=== PATIENT | female | born 1950 | race Caucasian/White ===

== ENCOUNTER → 2017-03-13 | Outpatient (CLI) | payer MEDICARE ==
--- NOTE | 2017-03-14 15:45 | RAD ---
DATE: 03/13/2017. EXAM: DIGITAL SCREEN BILAT W/CAD. HISTORY: Routine mammographic screening. COMPARISON: 03/12/2016. This study was interpreted with the benefit of Computerized Aided Detection (CAD). FINDINGS: The breast parenchyma is heterogeneously dense, which could reduce sensitivity of mammography. Breast parenchyma level C.. There are no suspicious masses, microcalcifications or architectural distortion. The parenchymal pattern is stable. Scattered and coarse calcifications bilaterally are benign. A small nodule inferiorly on the right is consistent with a benign intraparenchymal lymph node and appears stable. BI-RADS CATEGORY: 2 BENIGN FINDING(S). RECOMMENDED FOLLOW-UP: 12M 12 MONTH FOLLOW-UP. PQRS compliance statement: Patient information was entered into a reminder system with a target due date 03/13/2018 for the next mammogram. Mammography is a sensitive method for finding small breast cancers, but it does not detect them all and is not a substitute for careful clinical examination. A negative mammogram does not negate a clinically suspicious finding and should not result in delay in biopsying a clinically suspicious abnormality. "Our facility is accredited by the [employer] Mammography [employer]."
== END | disposition home or self-care (01) ==
LOC: MAMMO 14:30
PROVIDERS: ATTEND Family Medicine
DX: Z12.31 Encounter for screening mammogram for malignant neoplasm of breast (principal)
CPT/HCPCS: G0202; 77067

== ENCOUNTER → 2018-04-09 | Outpatient (CLI) | payer MEDICARE ==
--- NOTE | 2018-04-10 11:20 | RAD ---
DATE: 04/09/2018 EXAM: MAMMO DOMENIC SCREENING BILATERAL HISTORY: Routine screening COMPARISON: 03/13/2017 This study was interpreted with the benefit of Computerized Aided Detection (CAD). Breast Density: HETERO The breast parenchyma is heterogenously dense, which could reduce sensitivity of mammography. Breast parenchyma level C. FINDINGS: 2-D and 3-D tomosynthesis imaging was performed in CC and MLO projections. The fibroglandular tissues are somewhat nodular in character. No spiculated mass or architectural distortion is seen. There are numerous benign type calcifications. No suspicious microcalcifications have developed. IMPRESSION: Stable mammograms without evidence of malignancy. BI-RADS CATEGORY: 2 BENIGN FINDING(S) RECOMMENDED FOLLOW-UP: 12M 12 MONTH FOLLOW-UP PQRS compliance statement: Patient information was entered into a reminder system with a target due date for the next mammogram. Mammography is a sensitive method for finding small breast cancers, but it does not detect them all and is not a substitute for careful clinical examination. A negative mammogram does not negate a clinically suspicious finding and should not result in delay in biopsying a clinically suspicious abnormality. "Our facility is accredited by the [employer] Mammography [employer]."
== END | disposition home or self-care (01) ==
LOC: MAMMO 12:22
PROVIDERS: ATTEND Family Medicine
DX: Z12.31 Encounter for screening mammogram for malignant neoplasm of breast (principal)
CPT/HCPCS: 77063; 77067

== ENCOUNTER → 2018-12-02 | Outpatient (CLI) | payer MEDICARE ==
[~2018-12-02] MED LIST: REGADENOSON 0.4 MG/5 ML DISP.SYRIN. IV ONE
--- NOTE | 2018-12-02 09:28 | CARD ---
MR#: [id number] Date of Study: 12/02/2018 Ordering Physician: JAMAL LYONS, Referring Physician: JAMAL LYONS Tech: Samara Hill KEEGAN APPROVED REPORT EXAM: Two-dimensional and M-mode echocardiogram with Doppler and color Doppler. Other Information Quality : AverageHR: 72bpm Rhythm : NSRTechnically limited study due to smoking. INDICATION Chest Pain 2D DIMENSIONS RVDd3.0 (2.9-3.5cm)Left Atrium(2D)3.3 (1.6-4.0cm) IVSd0.7 (0.7-1.1cm)Aortic Root(2D)2.6 (2.0-3.7cm) LVDd4.1 (3.9-5.9cm)LVOT Diameter1.9 (1.8-2.4cm) PWd0.8 (0.7-1.1cm)LVDs2.9 (2.5-4.0cm) FS (%) 29.2 %SV41.5 ml LVEF(%)56.5 (>50%) M-Mode DIMENSIONS Left Atrium(MM)3.31 (2.5-4.0cm)Aortic Root2.81 (2.2-3.7cm) Aortic Valve AoV Peak Paul.162.8cm/sAoV VTI28.8cm AO Peak GR.10.6mmHgLVOT Peak Paul.105.0cm/s AO Mean GR.6mmHgAVA (VMAX)1.78cm2 YAZMIN (VTI)1.80cm2 Mitral Valve MV E Kwdmuyyv92.5cm/sMV DECEL WVOT563bz MV A Ohzgqhca153.9cm/sE/A Ratio0.7 Pulmonary Valve PV Peak Qpmvxeds743.7cm/s Tricuspid Valve TR P. Nmkqauum427fp/sRAP WOEOKWHM5waBh TR Peak Gr.55xaXrUIHU05jhAo LEFT VENTRICLE The left ventricle is normal size. There is normal left ventricular wall thickness. Left ventricle sy stolic function is low normal. The Ejection Fraction is 50-55%. Septal motion suggestive of conductio n defect. Transmitral Doppler flow pattern is Grade I-abnormal relaxation pattern. RIGHT VENTRICLE The right ventricle is normal size. There is normal right ventricular wall thickness. The right ventr icular systolic function is normal. ATRIA The left atrium size is normal. The right atrium size is normal. The interatrial septum is intact wit h no evidence for an atrial septal defect or patent foramen ovale as noted on 2-D or Doppler imaging. AORTIC VALVE The aortic valve is trileaflet. The aortic valve is mildly sclerotic. Doppler and Color Flow revealed no significant aortic regurgitation. There is no significant aortic valvular stenosis. MITRAL VALVE Mitral annular calcification is mild. There is no evidence of mitral valve prolapse. There is no mitr al valve stenosis. Doppler and Color Flow revealed no mitral valve regurgitation noted. TRICUSPID VALVE The tricuspid valve is normal in structure and function. Doppler and Color Flow revealed mild tricusp id regurgitation. There is mild-moderate pulmonary hypertension. The PA pressure was estimated at 40 mmHg. There is no tricuspid valve prolapse or vegetation. There is no tricuspid valve stenosis. PULMONIC VALVE The pulmonic valve is not well visualized. GREAT VESSELS The aortic root is normal in size. The ascending aorta is normal in size. The IVC is normal in size a nd collapses >50% with inspiration. PERICARDIAL EFFUSION There is no evidence of significant pericardial effusion. Critical Notification Critical Value: No <Conclusion> Left ventricle systolic function is low normal. The Ejection Fraction is 50-55%. Septal motion suggestive of conduction defect. Doppler and Color Flow revealed mild tricuspid regurgitation. There is mild-moderate pulmonary hypert ension. The PA pressure was estimated at 40 mmHg. Signed by : Ricki Paredes, Electronically Approved : 12/02/2018 09:28:06
--- NOTE | 2018-12-02 13:27 | RAD ---
MR#: [id number] Date of Study: 12/02/2018 Ordering Physician: JAMAL LYONS Referring Physician: RAMSES GAONA Tech: RT Kelby (R) (N) APPROVED REPORT Test Type: Pharmacological Stress Nurse/Tech: Martha Babcock R.N. Test Indications: c/p Cardiac History: htn,smoker Medications: See Electronic Medical Record Medical History: See Electronic Medical Record Resting ECG: SR w/ LBBB Resting Heart Rate: 79 bpm Resting Blood Pressure: 154/71mmHg Pretest Chest Pain: No chest pain Nurse/Tech Notes S1S2, lungs CTA Pharm. Details Pharmacologic stress testing was performed using 0.4mg per 5ml of regadenoson given intravenously ove r 7-10 seconds. Stress Symptoms SOB POST EXERCISE Reason for Termination: Infusion complete Max HR: 95 bpm Max Blood Pressure: 151/72mmHg Blood Pressure response to exercise: Normal blood pressure response during stress. Heart Rate response to exercise: wnl Chest Pain: No. Arrhythmia: No. ST Change: No. INTERPRETATION Stress EKG Conclusion: Baseline EKG showed sinus rhythm with LBBB. Non diagnostic changes at peak st ress. No arrhythmias. Imaging Protocol IMAGE PROTOCOL: Rest Tc-99m/stress Tc-99m 1 day Rest: Stress: Viability: Radiopharm.Tc99m IsnrxdphuEn14b Sestamibi Dose10.5mCi 33mCi Duration 13min. 13min. Img Date 12/02/2018 12/02/2018 Inj-Img Hjka91yxo. 60min. Rest Admin Site:IV - Left AntecubitalAdministrator:RT Mehreen (R)(N) Stress Admin Site: IV - Left AntecubitalAdministrator: AMPARO Mustafa STRESS DATA End Diast. Vol.87.0mlLVEDV index BSA52.0ml End Syst. Vol.23.0mlLVESV index BSA14.0ml Myocardial Kjwr507.0gEject. Crhblvex62.0% Stress Scores Regional WT1.00Summed WT8.00 Regional WM0.00Summed WM0.00 Study quality was good. Left Ventricular size was Normal at Rest and Stress. Lung uptake was . Left Ventricular ejection fraction is 74%. The rest and stress images show normal perfusion, normal contraction and thickening. LV Perf. Quant 17 Seg. SSS4.00 17 Seg. SRS4.00 17 Seg. SDS0.00 Stress Defect Extent (% LAD)16.30Rest Defect Extent (% LAD)15.00Rev. Defect Extent (% LAD)1.30 Stress Defect Extent (% LCX) 0.00Rest Defect Extent (% LCX)0.00Rev. Defect Extent (% LCX)0.00 Stress Defect Extent (% RCA)0.00Rest Defect Extent (% RCA)0.00Rev. Defect Extent (% RCA)0.00 Stress Defect Extent (% DORI)7.20Rest Defect Extent (% DORI)6.70Rev. Defect Extent (% DORI)0.40 Conclusion 1. Regadenoson cardioisotope stress test did not show any evidence of ischemia or infarct. 2. Normal left ventricular systolic function with ejection fraction calculated at 74%. 3. Low risk for cardiac events. Signed by : Jamal Lyons, Electronically Approved : 12/02/2018 13:27:21
== END | disposition home or self-care (01) ==
LOC: ECHO 07:40
PROVIDERS: ATTEND Internal Medicine Cardiovascular Disease
DX: I08.3 Combined rheumatic disorders of mitral, aortic and tricuspid valves (principal); I27.20 Pulmonary hypertension, unspecified; I44.7 Left bundle-branch block, unspecified; I10 Essential (primary) hypertension; Z87.891 Personal history of nicotine dependence
CPT/HCPCS: 78452; 93017; 93306; A9500; J2785

== ENCOUNTER → 2020-01-11 | Outpatient (CLI) | payer MEDICARE, OTHER ==
--- NOTE | 2020-01-11 15:13 | KCIC ---
EXAM: Lumbar spine MRI without contrast. HISTORY: Pain. TECHNIQUE: Multiplanar, multisequence magnetic resonance imaging of the lumbar spine was performed without contrast. COMPARISON: None. FINDINGS: There is lumbar levoscoliosis. There is slight rightward lateral translation of L4 on L5. There is minimal retrolisthesis of L2 on L3 and L3 on L4. There is degenerative endplate remodeling with disc space narrowing, osteophytosis and Schmorl's node formation primarily at L2-S1. There are few osseous hemangiomas. There is no suspicious osseous lesion or fracture. The conus terminates at L1. There are small simple renal cysts. No follow-up is routinely recommended for simple renal cysts. At T10-T11, there is a disc bulge and endplate remodeling. There is mild bilateral facet arthropathy. There is no stenosis. At T11-T12, there is a disc bulge and left lateral predominant endplate remodeling. There is mild left facet arthropathy. There is mild left foraminal stenosis. At T12-L1, there is no stenosis. At L1-L2, there is no stenosis. At L2-L3, there is a disc bulge and endplate osteophytosis. There is mild bilateral facet arthropathy. There is mild bilateral foraminal stenosis. There is mild central canal stenosis. At L3-L4, there is a right lateral predominant disc bulge and endplate osteophytosis. There is moderate right and mild left facet arthropathy. There is mild retrolisthesis. There is moderate right foraminal stenosis. There is mild central canal stenosis. At L4-L5, there is a shallow broad-based right paracentral disc protrusion and annular tear slight superior extrusion superimposed on a disc bulge and endplate osteophytosis. There is severe bilateral facet arthropathy. There is moderate right and moderate to severe left foraminal stenosis. There is mild central canal stenosis. At L5-S1, there is a broad-based posterior disc protrusion and annular tear superimposed on a left lateral predominant disc bulge and endplate osteophytosis. There is moderate left facet arthropathy. There is moderate to severe left foraminal stenosis. IMPRESSION: Multilevel degenerative change involving the lumbar spine, described in detail above. This is associated with mild left foraminal stenosis at T11-T12, mild bilateral foraminal and central canal stenosis at L2-L3, moderate right foraminal and mild central canal stenosis at L3-L4, moderate right and moderate to severe left foraminal and mild central canal stenosis at L4-L5, and moderate to severe left foraminal stenosis at L5-S1. Electronically signed by: Mireille Hyman MD (01/11/2020 3:10 PM) [id number]
== END | disposition home or self-care (01) ==
LOC: KCIC MRI 13:49
PROVIDERS: ATTEND Orthopaedic Surgery
DX: M47.815 Spondylosis without myelopathy or radiculopathy, thoracolumbar region (principal); M48.07 Spinal stenosis, lumbosacral region; M51.47 Schmorl's nodes, lumbosacral region; D18.09 Hemangioma of other sites; N28.1 Cyst of kidney, acquired
CPT/HCPCS: 72148

== ENCOUNTER → 2020-03-27 | Outpatient (CLI) | payer MEDICARE ==
[~2020-03-27] MED LIST changes: +AMLO-187 PO; +CLONAZEPAM1 MG PO; +DICY10CA3 PO; +DULO60CA6 PO; +GREE1CAP PO; +IOHEXOL 180 MG/ML 10 ML VIAL. ONE; +LOXA25CA PO; +MELO15TA23 PO; +METH20TA PO; +MULT-658 PO; +OMEP40CA45 PO; -REGADENOSON 0.4 MG/5 ML DISP.SYRIN. IV ONE; +TRAZ-118 PO; +Vitamin B12; +Vitamin C; +Vitamin D; +methylPREDNISolone ACETATE 40 MG/ML VIAL. ONE; +methylPREDNISolone ACETATE 80 MG/ML VIAL. ONE
--- NOTE | 2020-03-27 12:45 | PDOC1 ---
INITIAL PAIN CONSULT DATE OF SERVICE: DOS: DATE: 03/27/20 TIME: 12:38 CHIEF COMPLAINT: Chief Complaint: Low back and right lower extremity pain HISTORY OF PRESENT ILLNESS: 69-year-old female presents history of pain low back right lower extremity starting around 03 January of this year patient reports it started gradually with not result of any specific injury or accident that she is aware of is worse with standing and walking and at her job she is standing on her feet most of her working day. Patient reports initially treated with some hydrocodone also anti- inflammatories which helped and they still help decrease the pain by about 20 to 30% but the pain is still persistent patient ports much worse with standing and walking for prolonged periods as she does not work with prolonged standing. Patient reports is better with sitting or laying down sleeping is generally not disturbed with the pain does not affect her bowel bladder control but does affect her ability to walk and stand patient has had some chiropractic treatment which she reports was helpful by about 50% as well but not lasting patient rates her disability rating from 0-10 10 being the worst as a five on a scale of 10 family home responsibilities eight with recreation social activity 10 with occupational activity for self-care and life support activities. Patient have a MRI scan of the lumbar spine showing multilevel degenerative change with bilat eral foraminal and central canal stenosis at L2-3 moderate right foraminal and mild central canal stenosis L3-4 moderate right and moderate to severe left foraminal and mild central canal stenosis at L4-5 and moderate to severe left foraminal stenosis at L5-S1. Patient reports no loss of motor function but significant fatigability with standing with the right lower extremity. PAST MEDICAL HISTORY: PMH: Hearing loss, shortness of breath, COPD, hypertension, irritable bowel syndrome, gastropathy reflux, hyperlipidemia, dizziness, arthritis, depression PREVIOUS SURGERIES: Past Surgical Hx: Fibroid tumor excision, abdominal hysterectomy and appendectomy, oral surgery, fractured tailbone CURRENT MEDICATIONS: Current Meds: See chart ALLERGIES; Allergies: Coded Allergies: No Known Drug Allergies (Unverified , 12/02/18) FAMILY HISTORY: Family Hx: Hypertension SOCIAL HISTORY: Social Hx: Patient drinks about two drinks a week alcohol, smokes about a pack a day and has for the past 40 years patient does not use any illegal illicit or recreational drugs is single lives locally in [facility] 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 Extraocular movements are intact and symmetrical. Oral cavity: Mucous membranes moist and pink. Dentition is intact. NECK: Shows anterior throat supple without palpable lymphadenopathy noted. Swallow reflex symmetrical. CHEST: Shows normal on inspection. Breath sounds are clear bilaterally, distant but no rales rhonchi or wheezes auscultated. HEART: Shows S1, S2 clear. No murmurs auscultated. ABDOMEN: Soft, nontender, nondistended, obese. No palpable organomegaly is noted. No rebound or guarding demonstrated. BACK: Shows spine grossly in the midline. Normal-appearing cervical lordotic curvature. There is increased thoracic kyphosis, some minor flattening of the lumbar lordotic curvature. Lumbar paraspinous muscles show symmetrical on inspection, with palpation shows some moderate tenderness diffusely throughout the upper, middle and lower distribution of the paraspinous muscles bilaterally without specific trigger points, without radiation of pain. The patient has good rotational motion of the lumbar spine, both laterally as well as extension and flexion without significant difficulty. No tenderness over the spinous processes, sacrum or sacroiliac regions. EXTREMITIES: Lower extremities show deep tendon reflexes 1+ in the patellar and tendo calcaneus tendons. Motor exam is 4 on a scale of 5 with right dorsiflexion, extension, quadriceps and hamstring flexion and 5/5 on the left. Peripheral pulses are 1+ posterior tibial. No peripheral edema is noted bilaterally. Lower extremities are warm and dry to touch, equal in color and appearance. Straight leg raise noted to be positive on the right about 45 degrees, left side is negative. Gaenslen's and Douglas's maneuvers are negative bilaterally as well. The patient is able to stand, stand on her toes loses balance quickly putting all of her weight on her right lower extremity is walking with a slight favoring gait favoring the right leg but without any assistive device such as canes or walkers. SKIN: Shows warm and dry, good turgor. No edema. No sores, rashes or bruising throughout. IMPRESSION: Impression: 69-year-old female with several month history low back right lower extremity pain in a radicular fashion MRI scan lumbar spine as noted Arthritis Hypertension COPD Plan: Options were discussed with the patient including conservative medical management physical therapies interventional techniques, she like to pursue interventional techniques. We discussed a lumbar epidural steroid injection using description as well as anatomical models to describe the procedure. Risks were discussed including but not limited to: Bleeding, infection, possibility of epidural hematoma and subsequent neurological compromise, dural puncture, headaches, spinal cord and/or nerve damage, side effects of steroid medication, and poor results regarding pain control. Patient understands wished to proceed. Patient will return to clinic in approximate 2 weeks for follow-up, was counseled as to return appointment activity level and side effects to be aware of. Procedure is lumbar epidural steroid injection under local anesthetic using sterile prep and drape at the L4-5 level using C-arm fluoroscopic guidance in both AP and lateral views medications injected is 120 mg Depo-Medrol + 10 mL preservative-free normal saline and 2 mL contrast- condition at discharge is stable patient tolerated procedure well had no complications. BRET TRIMBLE MD Mar 27, 2020 12:45
== END | disposition home or self-care (01) ==
LOC: PNCL 10:19
PROVIDERS: ATTEND Anesthesiology
DX: M54.5 Low back pain (principal); M79.604 Pain in right leg; J44.9 Chronic obstructive pulmonary disease, unspecified; I10 Essential (primary) hypertension; K21.9 Gastro-esophageal reflux disease without esophagitis; E78.00 Pure hypercholesterolemia, unspecified; M19.90 Unspecified osteoarthritis, unspecified site; F32.9 Major depressive disorder, single episode, unspecified; Z90.710 Acquired absence of both cervix and uterus; Z98.890 Other specified postprocedural states; Z82.49 Family history of ischemic heart disease and other diseases of the circulatory system; Z79.899 Other long term (current) drug therapy; Z88.8 Allergy status to other drugs, medicaments and biological substances; Z87.891 Personal history of nicotine dependence
CPT/HCPCS: 62323; J1030; J1040; Q9965

== ENCOUNTER → 2020-04-10 | Outpatient (CLI) | payer MEDICARE ==
--- NOTE | 2020-04-10 10:14 | PDOC ---
Progress Note - Pain Clinic Date of Service: DOS: DATE: 04/10/20 TIME: 10:11 Diagnosis: Dx: Lumbar radiculopathy with lumbar degenerative disc disease and lumbar spinal stenosis History or Present Illness: HPI: 69-year-old female returns follow-up status post lumbar epidural steroid action x1. Patient reports about 50% improvement still pain the low back and into the right lower extremity the leg is doing much better with the back still some significant pain. Patient ports muscle cramping and some burning pain in the leg itself on the right side. Patient ports the pain is aching and tight tingling burning cramping worse in the morning when she is for starting work with some standing and changing positions. Patient ports pain is a 4 to scale 10 at all times worst average and least over the past week and is a 4 today patient reports no new motor or sensory deficits initially she was a much better with distance walking doing work activities household activities much greater ease and comfort traveling with greater ease and comfort as well. Patient ports still wakes her from sleep occasionally not every night but about every 5-6 hours mostly some cramping in the right leg. Patient reports no new motor or sensory deficits no bowel or bladder incontinence or other complaints. Physical Exam: VS: Blood pressure is 124/80 pulse 91 respiration 16 temperature 98.2 F weight is 140 pounds PE: PHYSICAL EXAMINATION: GENERAL: The patient is awake, alert, oriented, appropriate, very pleasant demeanor HEENT: Shows normocephalic, atraumatic. Extraocular movements are intact and symmetrical. Oral cavity: Mucous membranes moist and pink. NECK: Shows anterior throat supple without palpable lymphadenopathy noted. Swallow reflex symmetrical. CHEST: Shows normal on inspection. Breath sounds are clear bilaterally. HEART: Shows S1, S2 clear. No murmurs auscultated. ABDOMEN: Soft, nontender, nondistended, obese. No palpable organomegaly is noted. No rebound or guarding demonstrated. BACK: Shows spine grossly in the midline. Normal-appearing cervical lordotic curvature. There is slightly increased thoracic kyphosis, some minor flattening of the lumbar lordotic curvature. Lumbar paraspinous muscles show symmetrical on inspection, on palpation shows some moderate tenderness diffusely throughout the upper, middle and lower distribution of the paraspinous muscles bilaterally, but without specific trigger points, without radiation of pain. The patient has good rotational motion of the lumbar spine, both laterally as well as extension and flexion without significant difficulty. No tenderness over the spinous processes, sacrum or sacroiliac regions. EXTREMITIES: Lower extremities show deep tendon reflexes 1+ in the patellar and tendo calcaneus tendons. Motor exam is 4 on a scale of 5 with right dorsiflexion, extension, quadriceps and hamstring flexion and 5/5 on the left. Peripheral pulses are 1 posterior tibial. No peripheral edema is noted bilaterally. Lower extremities are warm and dry to touch, equal in color and appearance. SKIN: Shows warm and dry, good turgor. No edema. No sores, rashes or bruising throughout. Procedure: Procedure: Options were discussed with the patient. Patient chart was reviewed as her current medication regimen updated current review of systems updated today as well. We will proceed with a second in this series, lumbar epidural steroid injection today with fluoroscopic guidance. Risks were discussed including but not limited to: Bleeding, infection, possibility of epidural hematoma and subsequent neurological compromise, dural puncture, headaches, spinal cord and/or nerve damage, side effects of steroid medication, and poor results regarding pain control. Patient understands wished to proceed. Patient will return to clinic in approximate 2 weeks for follow-up, was counseled as to return appointment activity level and side effects to be aware of. Medication Injected: Med Injected: Procedure is lumbar epidural steroid injection under local anesthetic using sterile prep and drape at the L4-5 level using C-arm fluoroscopic guidance in both AP and lateral views medications injected is 120 mg Depo-Medrol + 10 mL preservative-free normal saline and 2 mL contrast- condition at discharge is stable patient tolerated procedure well had no complications. Condition at Discharge: Condition at Discharge: Condition at discharge stable, patient tolerated procedure well and had no complications. BRET TRIMBLE MD Apr 10, 2020 10:14
== END | disposition home or self-care (01) ==
LOC: PNCL 09:13
PROVIDERS: ATTEND Anesthesiology
DX: M51.16 Intervertebral disc disorders with radiculopathy, lumbar region (principal); M48.061 Spinal stenosis, lumbar region without neurogenic claudication; Z79.899 Other long term (current) drug therapy; Z88.8 Allergy status to other drugs, medicaments and biological substances
CPT/HCPCS: 62323; J1030; J1040; Q9965

== ENCOUNTER → 2020-04-10 | Outpatient (CLI) | payer MEDICARE, OTHER ==
[~2020-04-10] MED LIST changes: -IOHEXOL 180 MG/ML 10 ML VIAL. ONE; -methylPREDNISolone ACETATE 40 MG/ML VIAL. ONE; -methylPREDNISolone ACETATE 80 MG/ML VIAL. ONE
--- NOTE | 2020-04-10 17:35 | RAD ---
BILATERAL SCREENING MAMMOGRAM, 3-D History: Routine screening. Comparison: 04/09/2018, 03/13/2017, 03/12/2016, 01/13/2014. Technique: MLO and CC digital tomosynthesis (3D) images obtained. Radiologist reviewed these images on dedicated workstation. Findings: Breast Tissue Density C : The breasts are heterogeneously dense, which may obscure small masses. There are no dominant masses, suspicious microcalcifications, or architectural distortion. IMPRESSION: No mammographic evidence of malignancy. Recommend routine screening. BI-RADS category 1: Negative. The images were reviewed with computer-aided detection. Patient information is entered into reminder system with a target due date for the next screening mammogram. Mammography is the most sensitive method for finding small breast cancers, but it does not detect them all and is not a substitute for careful clinical examination. A negative mammogram does not negate a clinically suspicious finding and should not result in delay in biopsying a clinically suspicious abnormality. "Our facility is accredited by the [employer] Mammography Program." Electronically signed by: Smith Buenrostro MD (04/10/2020 5:32 PM) [id number]
== END ==
LOC: MAMMO 08:53
PROVIDERS: ATTEND Family Medicine
DX: Z12.31 Encounter for screening mammogram for malignant neoplasm of breast (principal)
CPT/HCPCS: 77063; 77067

== ENCOUNTER 2020-06-05 13:35 | Inpatient (IN) | payer MEDICARE ==
[~2020-06-05] VITALS: Ht 154.9 cm; Wt 62.9 kg
[~2020-06-05 13:35] MED LIST changes: -OMEP40CA45 PO; +OMEP40CA7 PO
--- NOTE | 2020-06-05 14:54 | EKG ---
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
[2020-06-05 15:09] LABS: BASO # 0.1 x10^3/uL (0.0-0.2); BASO % 1 % (0-3); EOS # 0.1 x10^3/uL (0.0-0.7); EOS % 1 % (0-3); HEMATOCRIT 38.3 % (36.0-47.0); HEMOGLOBIN 13.8 g/dL (12.0-15.5); LYMPH % 14 % (24-48); MEAN CORPUSCULAR HEMOGLOBIN 33 pg (25-35); MEAN CORPUSCULAR HGB CONC 36 g/dL (31-37); MEAN CORPUSCULAR VOLUME 92 fL (79-100); MONO # 0.5 x10^3/uL (0.0-1.1); MONO % 7 % (0-9); NEUT # 5.9 x10^3/uL (1.8-7.7); NEUT % 78 % (31-73); PLATELET COUNT 220 x10^3/uL (140-400); RED BLOOD COUNT 4.15 x10^6/uL (3.50-5.40); RED CELL DISTRIBUTION WIDTH 13.6 % (11.5-14.5); WHITE BLOOD COUNT 7.6 x10^3/uL (4.0-11.0)
[2020-06-05 15:17] LABS: PROTHROMBIN TIME PATIENT 12.4 SEC (11.7-14.0)
[2020-06-05 15:30] LABS: ALBUMIN 3.2 g/dL (3.4-5.0); CALCIUM 8.9 mg/dL (8.5-10.1); CREATININE 6.7 mg/dL (0.6-1.0); DIRECT BILIRUBIN 0.2 mg/dL (0.0-0.2); GFR 6.1; MAGNESIUM 1.8 mg/dL (1.8-2.4); TOTAL BILIRUBIN 0.7 mg/dL (0.2-1.0); TOTAL PROTEIN 6.8 g/dL (6.4-8.2)
--- NOTE | 2020-06-05 15:42 | RAD ---
XR CHEST 1V Clinical Indication: Reason: low potassium Comparison: None. Findings: Atherosclerotic aortic arch. The cardiomediastinal silhouette is normal. Lungs are clear. There is no pneumothorax. No pleural effusion is appreciated. No acute bone abnormality. There is degenerative e ndplate spurring of the thoracic spine. IMPRESSION: No acute cardiopulmonary process. Electronically signed by: Moreno Pappas MD (06/05/2020 3:40 PM) [id number]
[2020-06-05 15:43] LABS: POTASSIUM 2.7 mmol/L (3.5-5.1)
[2020-06-05 16:04] LABS: BILIRUBIN,URINE NEGATIVE (NEG); CLARITY,URINE CLEAR; COLOR,URINE YELLOW; NITRITE,URINE NEGATIVE (NEG); PROTEIN,URINE 30 mg/dL (NEG-TRACE); UROBILINOGEN,URINE 0.2 mg/dL (0.2 mg/dL)
[2020-06-05 16:10] LABS: BARBITURATES NEG (NEG); BENZODIAZEPINES NEG (NEG); CANNABINOIDS NEG (NEG); COCAINE NEG (NEG); METHADONE NEG (NEG); OPIATES NEG (NEG); PHENCYCLIDINE NEG (NEG)
[2020-06-05 16:13] LABS: AMPHETAMINE/METHAMPHETAMINE NEG (NEG)
[2020-06-05 16:19] LABS: AMORPHOUS SEDIMENT,UR PRESENT /HPF; BACTERIA,URINE 0 /HPF (0-FEW); HYALINE CASTS, URINE OCCASIONAL /HPF; RBC,URINE 0 /HPF (0-2); WAXY CASTS,URINE FEW /HPF
[2020-06-05 16:20] LABS: GRANULAR CASTS,URINE FEW /HPF
--- NOTE | 2020-06-05 16:43 | PHYS DOC ---
Past Medical History Past Medical History: Arthritis, COPD, Depression, GERD, Hypertension Past Surgical History: Appendectomy, Hysterectomy, Tonsillectomy, Other Additional Past Surgical Histo: D&C x2 Smoking Status: Current Every Day Smoker Additional Information: 05/06 ppd Alcohol Use: Heavy Additional Information: 2 vodka drinks daily General Adult EDM: Chief Complaint: ABNORMAL LABS HPI: HPI: 70-year-old female past medical history of hypertension, depression, COPD with tobacco dependence, osteoarthritis, chronic low back pain and history of daily alcohol use (2 drinks daily), presents to the ED sent in by primary care physician Dr. Martha Babcock with concern for hyperkalemia and renal failure. Spoke to Dr. Babcock on the phone who told me, patient had labs drawn on 06/02/20, potassium was 2.8, BUN 101, creatinine 10, GFR 3.5. Dr. Babcock reports patient had normal renal function and electrolytes in July 2019. Patient unaware why she was referred to the ER by her primary care physician. Patient states she was seen at [facility] urgent care for constipation and had 2 enemas 1 week ago. States she works 50 hours/week. Reports she drinks plenty of water. No recent V/D or fluid losses. No h/o covid. Pt with no active complaints. Follows with Dr. Dubois for cardiology after an episode of chest pain 2 years ago, with a normal stress test. No h/o acs/known cad or arrthymias. Review of Systems: Review of Systems: Constitutional: Denies fever or chills. [] Eyes: Denies change in visual acuity. [] HENT: Denies nasal congestion or sore throat. [] Respiratory: Denies cough or shortness of breath. [] Cardiovascular: Denies chest pain or edema. [] GI: Denies abdominal pain, nausea, vomiting, bloody stools or diarrhea. [] : Denies dysuria or hematuria Musculoskeletal: Denies back pain or joint pain. [] Integument: Denies rash. [] Neurologic: Denies headache, focal weakness or sensory changes. [] Endocrine: Denies polyuria or polydipsia. [] Lymphatic: Denies swollen glands. [] Psychiatric: Denies depression or anxiety. [] Heart Score: Risk Factors: Risk Factors: DM, Current or recent (<one month) smoker, HTN, HLP, family history of CAD, obesity. Risk Scores: Score 0 - 3: 2.5% MACE over next 6 weeks - Discharge Home Score 4 - 6: 20.3% MACE over next 6 weeks - Admit for Clinical Observation Score 7 - 10: 72.7% MACE over next 6 weeks - Early Invasive Strategies Allergies: Allergies: Allergies Coded Allergies Type Severity Reaction Last Updated Verified nifedipine Allergy Intermediate 06/05/20 Yes YARELIS Inhibitors Adverse Reaction Intermediate cough 06/05/20 Yes Physical Exam: PE: Constitutional: Well developed, well nourished, no acute distress, non-toxic appearance. HENT: Normocephalic, atraumatic, Eyes: EOMI, conjunctiva normal, no discharge. Neck: Normal range of motion, supple, Cardiovascular: S1/2 present, regular rhythm Lungs & Thorax: Speaking in full sentences, bilateral equal chest rise, no tachypnea or increased work of breathing Abdomen: soft, no tenderness, Skin: Warm, dry, no erythema, no rash. [] Back: No tenderness, no CVA tenderness. [] Extremities: No tenderness, no cyanosis, no edema Neurologic: Alert and oriented X 3, normal motor function, normal sensory function, no focal deficits noted. [] Psychologic: Affect normal, judgement normal, mood normal. [] Current Patient Data: Labs: Laboratory Tests Test 06/05/20 14:00 06/05/20 14:55 Urine Collection Type Unknown Urine Color Yellow Urine Clarity Clear Urine pH 5.0 (<5.0-8.0) Urine Specific [place] 1.010 (1.000-1.030) Urine Protein 30 mg/dL (NEG-TRACE) Urine Glucose (UA) Negative mg/dL (NEG) Urine Ketones (Stick) Negative mg/dL (NEG) Urine Blood Negative (NEG) Urine Nitrite Negative (NEG) Urine Bilirubin Negative (NEG) Urine Urobilinogen Dipstick 0.2 mg/dL (0.2 mg/dL) Urine Leukocyte Esterase Negative (NEG) Urine RBC 0 /HPF (0-2) Urine WBC 1-4 /HPF (0-4) Urine Squamous Epithelial Cells Mod /LPF Urine Amorphous Sediment Present /HPF Urine Bacteria 0 /HPF (0-FEW) Urine Cellular Casts Occ /HPF Urine Hyaline Casts Occasional /HPF Urine Granular Casts Few /HPF Urine Waxy Casts Few /HPF Urine Opiates Screen Neg (NEG) Urine Methadone Screen Neg (NEG) Urine Barbiturates Neg (NEG) Urine Phencyclidine Screen Neg (NEG) Urine Amphetamine/Methamphetamine Neg (NEG) Urine Benzodiazepines Screen Neg (NEG) Urine Cocaine Screen Neg (NEG) Urine Cannabinoids Screen Neg (NEG) Urine Ethyl Alcohol Neg (NEG) White Blood Count 7.6 x10^3/uL (4.0-11.0) Red Blood Count 4.15 x10^6/uL (3.50-5.40) Hemoglobin 13.8 g/dL (12.0-15.5) Hematocrit 38.3 % (36.0-47.0) Mean Corpuscular Volume 92 fL (79-100) Mean Corpuscular Hemoglobin 33 pg (25-35) Mean Corpuscular Hemoglobin Concent 36 g/dL (31-37) Red Cell Distribution Width 13.6 % (11.5-14.5) Platelet Count 220 x10^3/uL (140-400) Neutrophils (%) (Auto) 78 % (31-73) H Lymphocytes (%) (Auto) 14 % (24-48) L Monocytes (%) (Auto) 7 % (0-9) Eosinophils (%) (Auto) 1 % (0-3) Basophils (%) (Auto) 1 % (0-3) Neutrophils # (Auto) 5.9 x10^3/uL (1.8-7.7) Lymphocytes # (Auto) 1.0 x10^3/uL (1.0-4.8) Monocytes # (Auto) 0.5 x10^3/uL (0.0-1.1) Eosinophils # (Auto) 0.1 x10^3/uL (0.0-0.7) Basophils # (Auto) 0.1 x10^3/uL (0.0-0.2) Prothrombin Time 12.4 SEC (11.7-14.0) Prothrombin Time INR 1.0 (0.8-1.1) Activated Partial Thromboplast Time 29 SEC (24-38) Sodium Level 141 mmol/L (136-145) Potassium Level 2.7 mmol/L (3.5-5.1) *L Chloride Level 100 mmol/L (98-107) Carbon Dioxide Level 27 mmol/L (21-32) Anion Gap 14 (6-14) Blood Urea Nitrogen 106 mg/dL (7-20) H Creatinine 6.7 mg/dL (0.6-1.0) H Estimated GFR (Cockcroft-Gault) 6.1 Glucose Level 145 mg/dL (70-99) H Calcium Level 8.9 mg/dL (8.5-10.1) Magnesium Level 1.8 mg/dL (1.8-2.4) Total Bilirubin 0.7 mg/dL (0.2-1.0) Direct Bilirubin 0.2 mg/dL (0.0-0.2) Aspartate Amino Transferase (AST) 13 U/L (15-37) L Alanine Aminotransferase (ALT) 25 U/L (14-59) Alkaline Phosphatase 96 U/L (46-116) Creatine Kinase 114 U/L (26-192) Troponin I Quantitative 0.059 ng/mL (0.000-0.055) LW-Ncy-P-Type Natriuretic Peptide 1281 pg/mL (0-124) H Total Protein 6.8 g/dL (6.4-8.2) Albumin 3.2 g/dL (3.4-5.0) L Laboratory Tests 06/05/20 14:55 Laboratory Tests 06/05/20 14:55 Vital Signs: Vital Signs Date Time Temp Pulse Resp B/P (MAP) Pulse Ox O2 Delivery O2 Flow Rate FiO2 06/05/20 14:33 98.5 89 20 135/68 (90) 96 Room Air 98.5 EKG: EKG: Sinus rhythm 88 bpm, left axis deviation, QRS 144, QTC 468, left bundle branch block, T wave inversion 1 and aVL, patient with no active chest pain, does not meet STEMI criteria by modified scarbossas Radiology/Procedures: Radiology/Procedures: []IMAGING REPORT Signed PATIENT: JENNA ORTEGA ACCOUNT: [id number] : 1950 LOCATION: ER AGE: 70 SEX: F EXAM STATUS: REG ER ORD. PHYSICIAN: JAXON ANGELES DO REASON: low k PROCEDURE: PORTABLE CHEST 1V XR CHEST 1V Clinical Indication: Reason: low potassium Comparison: None. Findings: Atherosclerotic aortic arch. The cardiomediastinal silhouette is normal. Lungs are clear. There is no pneumothorax. No pleural effusion is appreciated. No acute bone abnormality. There is degenerative endplate spurring of the thoracic spine. IMPRESSION: No acute cardiopulmonary process. Electronically signed by: Moreno Pappas MD (06/05/2020 3:40 PM) [id number] DICTATED and SIGNED BY: MORENO PAPPAS MD DATE: 06/05/20 [id number] Impression: IMAGING REPORT Signed PATIENT: JENNA ORTEGA AACCOUNT: [id number] : 1950 LOCATION: ER AGE: 70 SEX: F EXAM STATUS: REG ER ORD. PHYSICIAN: JAXON ANGELES DO REASON: low k PROCEDURE: PORTABLE CHEST 1V XR CHEST 1V Clinical Indication: Reason: low potassium Comparison: None. Findings: Atherosclerotic aortic arch. The cardiomediastinal silhouette is normal. Lungs are clear. There is no pneumothorax. No pleural effusion is appreciated. No acute bone abnormality. There is degenerative endplate spurring of the thoracic spine. IMPRESSION: No acute cardiopulmonary process. Electronically signed by: Moreno Pappas MD (06/05/2020 3:40 PM) [id number] DICTATED and SIGNED BY: MORENO PAPPAS MD DATE: 06/05/20 [id number] 0 Course & Med Decision Making: Course & Med Decision Making Pertinent Labs and Imaging studies reviewed. (See chart for details) Concern for renal failure, prerenal acute kidney injury with hypokalemia and elevated troponin/nstemi. Pt with no active cp. I d/w nephro. Will admit for IV fluids and electrolyte replacement and further medical management/cardiology consultation. Patient stable at time of admission and agrees with this plan. I have spoken with the patient and/or caregivers. I have explained the patient's condition, diagnosis and treatment plan based on the information available to me at this time. I have answered the patient's and/or caregivers questions and answered any concerns. The patient and/or caregivers have as good an understanding of the patient's diagnosis, condition and treatment plan as can be expected at this point. The patient has been stabilized within the capability of the emergency department. The patient will be transported for [facility] care and management or will be moved to an observation or inpatient service. I have communicated with the staff or medical practitioner taking over this patient's care. Yomaira Disclaimer: Yomaira Disclaimer: This electronic medical record was generated, in whole or in part, using a voice recognition dictation system. Departure Departure Impression: Primary Impression: Prerenal acute renal failure Additional Impressions: Hypokalemia NSTEMI (non-ST elevated myocardial infarction) Disposition: ADMITTED INPT THIS HOSP Admitting Physician: ANGEL (Dr. Liu) Condition: GUARDED Referrals: GAYLA BABCOCK MD (PCP) JAXON ANGELES DO Jun 05, 2020 16:43
[2020-06-05] MEDS ORDERED: POTASSIUM CL 40MEQ IN 0.9%NACL 1,000 ML IV SCH (17:00)
[2020-06-05] MEDS ORDERED: POTASSIUM BICARB 20 MEQ EFFERVESCENT TABLET. PO ONE (17:00)
[2020-06-05] MEDS ORDERED: IV NORMAL SALINE 1000ML BAG 1,000 ML IV ONE (17:00)
[2020-06-05] MEDS ORDERED: MAGNESIUM SULFATE 2GM 50 ML IV ONE (17:00)
[2020-06-05] MEDS ORDERED: IV NORMAL SALINE 1000ML BAG 1,000 ML IV PRN (18:00)
[2020-06-05] MEDS ORDERED: CALCIUM CARBONATE 500 MG TAB.CHEW PO PRN (18:15)
[2020-06-05] MEDS ORDERED: MAGNESIUM HYDROXIDE 2,400 MG/30 ML ORAL.SUSP. PO PRN (18:15)
[2020-06-05] MEDS ORDERED: ACETAMINOPHEN 325 MG TABLET. PO PRN (18:15)
[2020-06-05] MEDS ORDERED: BISACODYL 10 MG SUPP.RECT. PR PRN (18:15)
[2020-06-05] MEDS ORDERED: ZOLPIDEM 5 MG TABLET. PO PRN (18:15)
[2020-06-05] MEDS ORDERED: MAG HYDROX/ALUMINUM HYD/SIMETH 30 ML ORAL.SUSP PO PRN (18:15)
[2020-06-05] MEDS ORDERED: ONDANSETRON PF 4 MG/2 ML VIAL. IVP PRN (18:15)
[2020-06-05] MEDS ORDERED: MORPHINE SULFATE 2 MG/ML VIAL. IV PRN (18:15)
[2020-06-05 18:20] VITALS: BP 141/72
--- NOTE | 2020-06-05 18:22 | PDOC1 ---
History and Physical Date of Admission Date of Admission DATE: 06/05/20 TIME: 18:07 Identification/Chief Complaint Chief Complaint Hyperkalemia Source Source: Chart review, Patient History of Present Illness History of Present Illness Patient is a 70-year-old female past medical history of hypertension, COPD, who presents to the ER at the behest of her primary care provider for concerns of hypokalemia renal failure. She was seen at [facility] ER 1 week ago due to 5- day history of constipation. She was treated with enema with improvement of her constipation, and followed up with her PCP 3 days ago. Some routine lab work was obtained that showed potassium 2.8, BUN 101, creatinine 10. Repeat lab work in the ER showed potassium 2.7, BUN 106, creatinine 6.7. Patient denies any recent history of vomiting, fever, or diarrhea. Will admit patient for further medical management. Past Medical History Past Medical History COPD, arthritis, depression, GERD, hypertension Past Surgical History Past Surgical History Appendectomy, hysterectomy, tonsillectomy, D&C x2 Family History Family History Denies significant family history Social History Smoke: <1 pack per day ALCOHOL: occassional Drugs: None Current Problem List Problem List Problems Medical Problems: (1) Hypokalemia Status: Acute (2) NSTEMI (non-ST elevated myocardial infarction) Status: Acute (3) Prerenal acute renal failure Status: Acute Current Medications Current Medications Current Medications Sodium Chloride 1,000 ml @ 1,000 mls/hr 1X ONCE IV Last administered on 06/05/20at 16:56; Start 06/05/20 at 17:00; Stop 06/05/20 at 17:59; Status DC Potassium Bicarbonate (Potassium Effervescent Tablet) 40 meq 1X ONCE PO Last administered on 06/05/20at 17:00; Start 06/05/20 at 17:00; Stop 06/05/20 at 17:01; Status DC Magnesium Sulfate 50 ml @ 25 mls/hr 1X ONCE IV Last administered on 06/05/20at 17:09; Start 06/05/20 at 17:00; Stop 06/05/20 at 18:59 Potassium Chloride/Sodium Chloride 1,000 ml @ 100 mls/hr Q10H IV ; Start 06/05/20 at 17:00; Stop 06/06/20 at 02:59 Active Scripts Active Reported Green Tea (Green Tea [place] Extract) 1 Each Capsule 1 Each PO DAILY [Vitamin B12] DAILY [Vitamin C] DAILY [Vitamin D] DAILY Centrum Silver Tablet (Multivits-Min/Fa/Lycopene/Lut) 1 Each Tablet 1 Each PO DAILY Clonazepam 1 Mg Tablet 1 Mg PO DAILY Ritalin (Methylphenidate Hcl) 20 Mg Tablet 1 Tab PO TID Trazodone Hcl 50 Mg Tablet 1 Tab PO QHS Loxapine (Loxapine Succinate) 25 Mg Capsule 25 Mg PO DAILY Cymbalta (Duloxetine Hcl) 60 Mg Capsule.dr 60 Mg PO BID Dicyclomine Hcl 10 Mg Capsule 1 Cap PO DAILY Amlodipine Besylate 10 Mg Tablet 10 Mg PO DAILY Omeprazole 40 Mg Capsule.dr 1 Cap PO DAILY Meloxicam 15 Mg Tablet 1 Tab PO DAILY 30 Days Allergies Allergies: Coded Allergies: nifedipine (Verified Allergy, Intermediate, 06/05/20) YARELIS Inhibitors (Verified Adverse Reaction, Intermediate, cough, 06/05/20) ROS Review of System GENERAL: No history of weight change, weakness or fevers. SKIN: No bruising, hair changes or rashes. EYES: No blurred, double or loss of vision. NOSE AND THROAT: No history of nosebleeds, hoarseness or sore throat. HEART: Denies chest pain, denies palpitations. LUNGS: Denies cough, hemoptysis, wheezing or shortness of breath. GASTROINTESTINAL: Denies nausea, vomiting, abdominal pain. GENITOURINARY: Denies dysuria, frequency, urgency, hematuria. NEUROLOGIC: Denies history of numbness, tingling, tremor or weakness. PSYCHIATRIC: Denies anxiety, denies depression. ENDOCRINE: No history of heat or cold intolerance, polyuria or polydipsia. EXTREMITIES: Denies muscle weakness, joint pain, pain on walking or stiffness. Physical Exam Physical Exam General: Alert, Oriented X3, Cooperative, No acute distress HEENT: PERRLA, EOMI Lungs: Clear to auscultation, Normal air movement Heart: RRR, no murmurs Cardiovascular: S1, S2 Abdomen: Normal bowel sounds, Soft, No tenderness Extremities: No clubbing, No cyanosis Skin: No rashes, No significant lesion Neuro: Normal speech, Normal tone, Sensation intact Psych/Mental Status: Mental status NL, Mood NL Vitals Vitals Vital Signs Date Time Temp Pulse Resp B/P (MAP) Pulse Ox O2 Delivery O2 Flow Rate FiO2 06/05/20 14:33 98.5 89 20 135/68 (90) 96 Room Air 98.5 Labs Labs Laboratory Tests Test 06/05/20 14:00 06/05/20 14:55 Urine Collection Type Unknown Urine Color Yellow Urine Clarity Clear Urine pH 5.0 (<5.0-8.0) Urine Specific [place] 1.010 (1.000-1.030) Urine Protein 30 mg/dL (NEG-TRACE) Urine Glucose (UA) Negative mg/dL (NEG) Urine Ketones (Stick) Negative mg/dL (NEG) Urine Blood Negative (NEG) Urine Nitrite Negative (NEG) Urine Bilirubin Negative (NEG) Urine Urobilinogen Dipstick 0.2 mg/dL (0.2 mg/dL) Urine Leukocyte Esterase Negative (NEG) Urine RBC 0 /HPF (0-2) Urine WBC 1-4 /HPF (0-4) Urine Squamous Epithelial Cells Mod /LPF Urine Amorphous Sediment Present /HPF Urine Bacteria 0 /HPF (0-FEW) Urine Cellular Casts Occ /HPF Urine Hyaline Casts Occasional /HPF Urine Granular Casts Few /HPF Urine Waxy Casts Few /HPF Urine Opiates Screen Neg (NEG) Urine Methadone Screen Neg (NEG) Urine Barbiturates Neg (NEG) Urine Phencyclidine Screen Neg (NEG) Urine Amphetamine/Methamphetamine Neg (NEG) Urine Benzodiazepines Screen Neg (NEG) Urine Cocaine Screen Neg (NEG) Urine Cannabinoids Screen Neg (NEG) Urine Ethyl Alcohol Neg (NEG) White Blood Count 7.6 x10^3/uL (4.0-11.0) Red Blood Count 4.15 x10^6/uL (3.50-5.40) Hemoglobin 13.8 g/dL (12.0-15.5) Hematocrit 38.3 % (36.0-47.0) Mean Corpuscular Volume 92 fL (79-100) Mean Corpuscular Hemoglobin 33 pg (25-35) Mean Corpuscular Hemoglobin Concent 36 g/dL (31-37) Red Cell Distribution Width 13.6 % (11.5-14.5) Platelet Count 220 x10^3/uL (140-400) Neutrophils (%) (Auto) 78 % (31-73) Lymphocytes (%) (Auto) 14 % (24-48) Monocytes (%) (Auto) 7 % (0-9) Eosinophils (%) (Auto) 1 % (0-3) Basophils (%) (Auto) 1 % (0-3) Neutrophils # (Auto) 5.9 x10^3/uL (1.8-7.7) Lymphocytes # (Auto) 1.0 x10^3/uL (1.0-4.8) Monocytes # (Auto) 0.5 x10^3/uL (0.0-1.1) Eosinophils # (Auto) 0.1 x10^3/uL (0.0-0.7) Basophils # (Auto) 0.1 x10^3/uL (0.0-0.2) Prothrombin Time 12.4 SEC (11.7-14.0) Prothromb Time International Ratio 1.0 (0.8-1.1) Activated Partial Thromboplast Time 29 SEC (24-38) Sodium Level 141 mmol/L (136-145) Potassium Level 2.7 mmol/L (3.5-5.1) Chloride Level 100 mmol/L (98-107) Carbon Dioxide Level 27 mmol/L (21-32) Anion Gap 14 (6-14) Blood Urea Nitrogen 106 mg/dL (7-20) Creatinine 6.7 mg/dL (0.6-1.0) Estimated GFR (Cockcroft-Gault) 6.1 Glucose Level 145 mg/dL (70-99) Calcium Level 8.9 mg/dL (8.5-10.1) Magnesium Level 1.8 mg/dL (1.8-2.4) Total Bilirubin 0.7 mg/dL (0.2-1.0) Direct Bilirubin 0.2 mg/dL (0.0-0.2) Aspartate Amino Transf (AST/SGOT) 13 U/L (15-37) Alanine Aminotransferase (ALT/SGPT) 25 U/L (14-59) Alkaline Phosphatase 96 U/L (46-116) Creatine Kinase 114 U/L (26-192) Troponin I Quantitative 0.059 ng/mL (0.000-0.055) EJ-Lfm-A-Type Natriuretic Peptide 1281 pg/mL (0-124) Total Protein 6.8 g/dL (6.4-8.2) Albumin 3.2 g/dL (3.4-5.0) Laboratory Tests Test 06/05/20 14:00 06/05/20 14:55 Urine Collection Type Unknown Urine Color Yellow Urine Clarity Clear Urine pH 5.0 (<5.0-8.0) Urine Specific [place] 1.010 (1.000-1.030) Urine Protein 30 mg/dL (NEG-TRACE) Urine Glucose (UA) Negative mg/dL (NEG) Urine Ketones (Stick) Negative mg/dL (NEG) Urine Blood Negative (NEG) Urine Nitrite Negative (NEG) Urine Bilirubin Negative (NEG) Urine Urobilinogen Dipstick 0.2 mg/dL (0.2 mg/dL) Urine Leukocyte Esterase Negative (NEG) Urine RBC 0 /HPF (0-2) Urine WBC 1-4 /HPF (0-4) Urine Squamous Epithelial Cells Mod /LPF Urine Amorphous Sediment Present /HPF Urine Bacteria 0 /HPF (0-FEW) Urine Cellular Casts Occ /HPF Urine Hyaline Casts Occasional /HPF Urine Granular Casts Few /HPF Urine Waxy Casts Few /HPF Urine Opiates Screen Neg (NEG) Urine Methadone Screen Neg (NEG) Urine Barbiturates Neg (NEG) Urine Phencyclidine Screen Neg (NEG) Urine Amphetamine/Methamphetamine Neg (NEG) Urine Benzodiazepines Screen Neg (NEG) Urine Cocaine Screen Neg (NEG) Urine Cannabinoids Screen Neg (NEG) Urine Ethyl Alcohol Neg (NEG) White Blood Count 7.6 x10^3/uL (4.0-11.0) Red Blood Count 4.15 x10^6/uL (3.50-5.40) Hemoglobin 13.8 g/dL (12.0-15.5) Hematocrit 38.3 % (36.0-47.0) Mean Corpuscular Volume 92 fL (79-100) Mean Corpuscular Hemoglobin 33 pg (25-35) Mean Corpuscular Hemoglobin Concent 36 g/dL (31-37) Red Cell Distribution Width 13.6 % (11.5-14.5) Platelet Count 220 x10^3/uL (140-400) Neutrophils (%) (Auto) 78 % (31-73) Lymphocytes (%) (Auto) 14 % (24-48) Monocytes (%) (Auto) 7 % (0-9) Eosinophils (%) (Auto) 1 % (0-3) Basophils (%) (Auto) 1 % (0-3) Neutrophils # (Auto) 5.9 x10^3/uL (1.8-7.7) Lymphocytes # (Auto) 1.0 x10^3/uL (1.0-4.8) Monocytes # (Auto) 0.5 x10^3/uL (0.0-1.1) Eosinophils # (Auto) 0.1 x10^3/uL (0.0-0.7) Basophils # (Auto) 0.1 x10^3/uL (0.0-0.2) Prothrombin Time 12.4 SEC (11.7-14.0) Prothromb Time International Ratio 1.0 (0.8-1.1) Activated Partial Thromboplast Time 29 SEC (24-38) Sodium Level 141 mmol/L (136-145) Potassium Level 2.7 mmol/L (3.5-5.1) Chloride Level 100 mmol/L (98-107) Carbon Dioxide Level 27 mmol/L (21-32) Anion Gap 14 (6-14) Blood Urea Nitrogen 106 mg/dL (7-20) Creatinine 6.7 mg/dL (0.6-1.0) Estimated GFR (Cockcroft-Gault) 6.1 Glucose Level 145 mg/dL (70-99) Calcium Level 8.9 mg/dL (8.5-10.1) Magnesium Level 1.8 mg/dL (1.8-2.4) Total Bilirubin 0.7 mg/dL (0.2-1.0) Direct Bilirubin 0.2 mg/dL (0.0-0.2) Aspartate Amino Transf (AST/SGOT) 13 U/L (15-37) Alanine Aminotransferase (ALT/SGPT) 25 U/L (14-59) Alkaline Phosphatase 96 U/L (46-116) Creatine Kinase 114 U/L (26-192) Troponin I Quantitative 0.059 ng/mL (0.000-0.055) AS-Aci-O-Type Natriuretic Peptide 1281 pg/mL (0-124) Total Protein 6.8 g/dL (6.4-8.2) Albumin 3.2 g/dL (3.4-5.0) Images Images XR CHEST 1V Clinical Indication: Reason: low potassium Comparison: None. Findings: Atherosclerotic aortic arch. The cardiomediastinal silhouette is normal. Lungs are clear. There is no pneumothorax. No pleural effusion is appreciated. No acute bone abnormality. There is degenerative endplate spurring of the thoracic spine. IMPRESSION: No acute cardiopulmonary process. VTE Prophylaxis Ordered VTE Prophylaxis Devices: No VTE Pharmacological Prophylaxi: Yes Assessment/Plan Assessment/Plan Acute renal failure Hypokalemia Elevated troponin Elevated BNP Plan: Provide continuous IV fluids Consult to nephrology Will obtain urine osmoles, serum osmole, urine potassium Continue to trend troponins; likely elevated in setting of acute renal failure; will consult cardiology if troponins continue to increase Echocardiogram pending Resume home medications FEN - Cardiac diet PPX - Lovenox FULL CODE Dispo - inpatient for above Justifications for Admission Other Justification TOMER MARISCAL MD Jun 05, 2020 18:22
[2020-06-05] MEDS: traZODone 50 MG TABLET. PO SCH (21:26)
[2020-06-05] MEDS: HEPARIN for SUB-Q USE 5,000 UNIT/ML VIAL. SQ SCH (21:29)
[2020-06-05] MEDS ORDERED: HYDR12.58 PO (21:48)
[2020-06-05] MEDS ORDERED: ALBU2.5V8 IH (21:48)
[2020-06-05] MEDS ORDERED: LOSA100T14 PO (21:48)
[2020-06-05] MEDS ORDERED: CRESTOR40 MG PO (21:48)
[2020-06-05] MEDS ORDERED: ALBUTEROL SULFATE 2.5 MG/3 ML NEBU. INH PRN (22:15)
[2020-06-05] MEDS: LOXAPINE SUCCINATE 25 MG CAPSULE PO SCH (22:29)
[2020-06-05] MEDS: ATORVASTATIN CALCIUM 40 MG TABLET. PO SCH (22:34)
[2020-06-05 22:51] VITALS: BP 151/74
[2020-06-06 03:02] VITALS: BP 134/68
--- NOTE | 2020-06-06 06:28 | PDOC ---
[employer] PROGRESS NOTE Date of Service DOS: DATE: 06/06/20 TIME: 06:23 Chief Complaint Chief Complaint Assessment/Plan Acute renal failure Hypokalemia Elevated troponin Elevated BNP Plan: Provide continuous IV fluids Consult to nephrology Will obtain urine osmoles, serum osmole, urine potassium Continue to trend troponins; likely elevated in setting of acute renal failure; will consult cardiology if troponins continue to increase Echocardiogram pending Resume home medications FEN - Cardiac diet PPX - Lovenox FULL CODE Dispo - inpatient for above History of Present Illness History of Present Illness Patient is a 70-year-old female past medical history of hypertension, COPD, who presents to the ER at the behest of her primary care provider for concerns of hypokalemia renal failure. She was seen at [facility] ER 1 week ago due to 5- day history of constipation. She was treated with enema with improvement of her constipation, and followed up with her PCP 3 days ago. Some routine lab work was obtained that showed potassium 2.8, BUN 101, creatinine 10. Repeat lab work in the ER showed potassium 2.7, BUN 106, creatinine 6.7. Patient denies any recent history of vomiting, fever, or diarrhea. Will admit patient for further medical management. 06/06: Patient seen and evaluated. She has no complaints. Creatinine 6.7 yesterday, creatinine 4.9 today. Continue IV fluids, avoid nephrotoxins. Will follow cardiology and nephrology recommendations. Vitals/I&O Vitals/I&O: Vital Signs Date Time Temp Pulse Resp B/P (MAP) Pulse Ox O2 Delivery O2 Flow Rate FiO2 06/06/20 03:02 97.6 80 18 134/68 (90) 98 Room Air 97.6 I & O 06/05/20 06/05/20 06/06/20 15:00 23:00 07:00 Intake Total 100 ml 500 ml Output Total 600 ml 800 ml Balance -500 ml -300 ml Physical Exam General: Alert, Oriented X3, Cooperative Heart: Regular rate Lungs: Clear Abdomen: Normal bowel sounds, No tenderness Extremities: No clubbing, No cyanosis Skin: No rashes, No breakdown Labs Labs: Laboratory Tests Test 06/05/20 14:00 06/05/20 14:55 06/05/20 20:30 Urine Collection Type Unknown Urine Color Yellow Urine Clarity Clear Urine pH 5.0 (<5.0-8.0) Urine Specific [place] 1.010 (1.000-1.030) Urine Protein 30 mg/dL (NEG-TRACE) Urine Glucose (UA) Negative mg/dL (NEG) Urine Ketones (Stick) Negative mg/dL (NEG) Urine Blood Negative (NEG) Urine Nitrite Negative (NEG) Urine Bilirubin Negative (NEG) Urine Urobilinogen Dipstick 0.2 mg/dL (0.2 mg/dL) Urine Leukocyte Esterase Negative (NEG) Urine RBC 0 /HPF (0-2) Urine WBC 1-4 /HPF (0-4) Urine Squamous Epithelial Cells Mod /LPF Urine Amorphous Sediment Present /HPF Urine Bacteria 0 /HPF (0-FEW) Urine Cellular Casts Occ /HPF Urine Hyaline Casts Occasional /HPF Urine Granular Casts Few /HPF Urine Waxy Casts Few /HPF Urine Opiates Screen Neg (NEG) Urine Methadone Screen Neg (NEG) Urine Barbiturates Neg (NEG) Urine Phencyclidine Screen Neg (NEG) Urine Amphetamine/Methamphetamine Neg (NEG) Urine Benzodiazepines Screen Neg (NEG) Urine Cocaine Screen Neg (NEG) Urine Cannabinoids Screen Neg (NEG) Urine Ethyl Alcohol Neg (NEG) White Blood Count 7.6 x10^3/uL (4.0-11.0) Red Blood Count 4.15 x10^6/uL (3.50-5.40) Hemoglobin 13.8 g/dL (12.0-15.5) Hematocrit 38.3 % (36.0-47.0) Mean Corpuscular Volume 92 fL (79-100) Mean Corpuscular Hemoglobin 33 pg (25-35) Mean Corpuscular Hemoglobin Concent 36 g/dL (31-37) Red Cell Distribution Width 13.6 % (11.5-14.5) Platelet Count 220 x10^3/uL (140-400) Neutrophils (%) (Auto) 78 % (31-73) Lymphocytes (%) (Auto) 14 % (24-48) Monocytes (%) (Auto) 7 % (0-9) Eosinophils (%) (Auto) 1 % (0-3) Basophils (%) (Auto) 1 % (0-3) Neutrophils # (Auto) 5.9 x10^3/uL (1.8-7.7) Lymphocytes # (Auto) 1.0 x10^3/uL (1.0-4.8) Monocytes # (Auto) 0.5 x10^3/uL (0.0-1.1) Eosinophils # (Auto) 0.1 x10^3/uL (0.0-0.7) Basophils # (Auto) 0.1 x10^3/uL (0.0-0.2) Prothrombin Time 12.4 SEC (11.7-14.0) Prothromb Time International Ratio 1.0 (0.8-1.1) Activated Partial Thromboplast Time 29 SEC (24-38) Sodium Level 141 mmol/L (136-145) Potassium Level 2.7 mmol/L (3.5-5.1) Chloride Level 100 mmol/L (98-107) Carbon Dioxide Level 27 mmol/L (21-32) Anion Gap 14 (6-14) Blood Urea Nitrogen 106 mg/dL (7-20) Creatinine 6.7 mg/dL (0.6-1.0) Estimated GFR (Cockcroft-Gault) 6.1 Glucose Level 145 mg/dL (70-99) Calcium Level 8.9 mg/dL (8.5-10.1) Magnesium Level 1.8 mg/dL (1.8-2.4) Total Bilirubin 0.7 mg/dL (0.2-1.0) Direct Bilirubin 0.2 mg/dL (0.0-0.2) Aspartate Amino Transf (AST/SGOT) 13 U/L (15-37) Alanine Aminotransferase (ALT/SGPT) 25 U/L (14-59) Alkaline Phosphatase 96 U/L (46-116) Creatine Kinase 114 U/L (26-192) Troponin I Quantitative 0.059 ng/mL (0.000-0.055) 0.067 ng/mL (0.000-0.055) AG-Jaz-[id number]-Type Natriuretic Peptide 1281 pg/mL (0-124) Total Protein 6.8 g/dL (6.4-8.2) Albumin 3.2 g/dL (3.4-5.0) Assessment and Plan Assessmemt and Plan Problems Medical Problems: (1) Hypokalemia Status: Acute (2) NSTEMI (non-ST elevated myocardial infarction) Status: Acute (3) Prerenal acute renal failure Status: Acute Comment Review of Relevant I have reviewed the following items kiana (where applicable) has been applied. Medications: Current Medications Medications (Trade) Dose Ordered Sig/Esme Route PRN Reason Start Time Stop Time Status Last Admin Dose Admin Sodium Chloride 1,000 ml @ 1,000 mls/hr 1X ONCE IV 06/05/20 17:00 06/05/20 17:59 DC 06/05/20 16:56 Potassium Bicarbonate (Potassium Effervescent Tablet) 40 meq 1X ONCE PO 06/05/20 17:00 06/05/20 17:01 DC 06/05/20 17:00 Magnesium Sulfate 50 ml @ 25 mls/hr 1X ONCE IV 06/05/20 17:00 06/05/20 18:59 DC 06/05/20 17:09 Potassium Chloride/Sodium Chloride 1,000 ml @ 100 mls/hr Q10H IV 06/05/20 17:00 06/06/20 02:59 DC 06/05/20 18:13 Trazodone HCl (Desyrel) 50 mg QHS PO 06/05/20 21:00 06/05/20 21:26 Heparin Sodium (Porcine) (Heparin Sodium) 5,000 unit Q12HR SQ 06/05/20 21:00 06/05/20 21:29 Amlodipine Besylate (Norvasc) 10 mg HS PO 06/05/20 23:00 06/05/20 22:34 Atorvastatin Calcium (Lipitor) 80 mg QHS PO 06/05/20 23:00 06/05/20 22:34 Loxapine Succinate (Loxitane) 25 mg HS PO 06/05/20 23:00 06/05/20 22:29 Justifications for Admission Other Justification Acute renal failure, hypokalemia TOMER MARISCAL MD Jun 06, 2020 06:28
[2020-06-06 07:00] VITALS: BP 134/67
[2020-06-06 08:45] LABS: BASO # 0.1 x10^3/uL (0.0-0.2); BASO % 1 % (0-3); EOS # 0.2 x10^3/uL (0.0-0.7); EOS % 3 % (0-3); HEMATOCRIT 38.9 % (36.0-47.0); HEMOGLOBIN 13.3 g/dL (12.0-15.5); LYMPH # 1.7 x10^3/uL (1.0-4.8); LYMPH % 28 % (24-48); MEAN CORPUSCULAR HEMOGLOBIN 33 pg (25-35); MEAN CORPUSCULAR HGB CONC 34 g/dL (31-37); MEAN CORPUSCULAR VOLUME 95 fL (79-100); MONO # 0.6 x10^3/uL (0.0-1.1); MONO % 10 % (0-9); NEUT # 3.4 x10^3/uL (1.8-7.7); NEUT % 57 % (31-73); PLATELET COUNT 204 x10^3/uL (140-400); RED BLOOD COUNT 4.08 x10^6/uL (3.50-5.40); RED CELL DISTRIBUTION WIDTH 13.6 % (11.5-14.5)
[2020-06-06] MEDS: DICYCLOMINE HCL 10 MG CAPSULE PO SCH (08:57)
[2020-06-06] MEDS: DULoxetine HCL 30 MG CAPSULE.DR PO SCH (08:57)
[2020-06-06] MEDS: PANTOPRAZOLE 40 MG TABLET.DR. PO SCH (08:57)
[2020-06-06] MEDS ORDERED: hydroCHLOROthiazide 12.5 MG CAPSULE PO SCH (09:00)
[2020-06-06] MEDS ORDERED: LOSARTAN POTASSIUM 50 MG TABLET. PO SCH (09:00)
[2020-06-06] MEDS ORDERED: clonazePAM 0.5 MG TABLET PO SCH (09:00)
[2020-06-06] MEDS: HEPARIN for SUB-Q USE 5,000 UNIT/ML VIAL. SQ SCH ×2 (09:02→22:17)
[2020-06-06 09:03] LABS: CALCIUM 9.2 mg/dL (8.5-10.1); CREATININE 4.9 mg/dL (0.6-1.0); GFR 8.8; POTASSIUM 3.2 mmol/L (3.5-5.1)
[2020-06-06] MEDS ORDERED: POTASSIUM CHLORIDE 20 MEQ TABLET.ER. PO ONE (09:30)
[2020-06-06] MEDS: IV NORMAL SALINE 1000ML BAG 1,000 ML IV SCH ×2 (09:37→19:26)
[2020-06-06 09:54] LABS: CHOLESTEROL/HDL RATIO 1.9
[2020-06-06] MEDS ORDERED: METH20TA PO (10:16)
--- NOTE | 2020-06-06 10:22 | PDOC2 ---
CONSULT Date of Consult Date of Consult DATE: 06/06/20 TIME: 10:22 Reason for Consult Reason for Consult: KENYA Source Source: Chart review, Patient History of Present Illness Reason for Visit: Patient is a 70 yo female with past medical history of hypertension, COPD, who presents to the ER from her PCP's office for concerns of hypokalemia renal failure. She was seen at [facility] ER 1 week ago due to 5-day history of constipation. She was treated with enema with improvement of her constipation, and followed up with her PCP 3 days ago. Some routine lab work was obtained that showed potassium 2.8, BUN 101, creatinine 10. Repeat lab work in the ER showed potassium 2.7, BUN 106, creatinine 6.7. Patient denies any recent history of vomiting, fever, or diarrhea. She denies any F/C. No Cough, SOB or CP. She reports she was inctinnet for some time which resolved , approx since past 3 months she notice urine was frothy and maybe some decline in UOP. Denies any dysuria, hematuria, No symptoms of UTI . She reports she stays adequately hydrated and drinks at least 64 oz of water /day. No palpitations, dizziness and no recent falls, injury. No recent imaging that required IV contrast. Denies any Hx of Kidney stones She has been on meloxicam for many tears for her back pain which is mid to lower back also radiating to flank area, its constant, chronic . Denies use of any OTC meds or health supplements except Vit D and green tree extract . Not on Diuretics, No recent med changes or Abx by PCP She is on ritalin for daytime somnolence Past Medical History Past Medical History COPD, arthritis, depression, GERD, hypertension Carpal Tunnel Syndrome, Other (narcolepsy?) Past Surgical History Past Surgical History Appendectomy, hysterectomy, tonsillectomy, D&C x2 Family History Family History Denies significant family history Social History Social History Smoke: <1 pack per day ALCOHOL: occassional Drugs: None <1 pack per day ALCOHOL: occassional Drugs: None Current Problem List Problem List Problems Medical Problems: (1) Hypokalemia Status: Acute (2) NSTEMI (non-ST elevated myocardial infarction) Status: Acute (3) Prerenal acute renal failure Status: Acute Current Medications Current Medications Current Medications Sodium Chloride 1,000 ml @ 1,000 mls/hr 1X ONCE IV Last administered on 06/05/20at 16:56; Start 06/05/20 at 17:00; Stop 06/05/20 at 17:59; Status DC Potassium Bicarbonate (Potassium Effervescent Tablet) 40 meq 1X ONCE PO Last administered on 06/05/20at 17:00; Start 06/05/20 at 17:00; Stop 06/05/20 at 17:01; Status DC Magnesium Sulfate 50 ml @ 25 mls/hr 1X ONCE IV Last administered on 06/05/20at 17:09; Start 06/05/20 at 17:00; Stop 06/05/20 at 18:59; Status DC Potassium Chloride/Sodium Chloride 1,000 ml @ 100 mls/hr Q10H IV Last administ ered on 06/05/20at 18:13; Start 06/05/20 at 17:00; Stop 06/06/20 at 02:59; Status DC Sodium Chloride 1,000 ml @ 100 mls/hr CONT PRN IV .; Start 06/05/20 at 18:00 Dicyclomine HCl (Bentyl) 10 mg DAILY PO Last administered on 06/06/20at 08:57; Start 06/06/20 at 09:00 Trazodone HCl (Desyrel) 50 mg QHS PO Last administered on 06/05/20at 21:26; Start 06/05/20 at 21:00 Clonazepam (KlonoPIN) 1 mg DAILY PO Last administered on 06/06/20at 08:57; Start 06/06/20 at 09:00 Ondansetron HCl (Zofran) 4 mg PRN Q6HRS PRN IVP NAUSEA/VOMITING; Start 06/05/20 at 18:15 Al Hydroxide/Mg Hydroxide (Mylanta Plus Xs) 30 ml PRN Q3HRS PRN PO HEARTBURN / GAS; Start 06/05/20 at 18:15; Status Cancel Calcium Carbonate/ Glycine (Tums) 500 mg PRN Q3HRS PRN PO UPSET STOMACH; Start 06/05/20 at 18:15 Zolpidem Tartrate (Ambien) 5 mg PRN QHS PRN PO INSOMNIA, MAY REPEAT IN 1HR; Start 06/05/20 at 18:15 Morphine Sulfate (Morphine Sulfate) 2 mg PRN Q1HR PRN IV PAIN; Start 06/05/20 at 18:15 Acetaminophen (Tylenol) 650 mg PRN Q6HRS PRN PO Headaches, Temp > 101.5F; Start 06/05/20 at 18:15 Magnesium Hydroxide (Milk Of Magnesia) 2,400 mg PRN Q12HR PRN PO CONSTIPATION; Start 06/05/20 at 18:15; Status Cancel Bisacodyl (Dulcolax Supp) 10 mg PRN DAILY PRN OR CONSTIPATION; Start 06/05/20 at 18:15 Heparin Sodium (Porcine) (Heparin Sodium) 5,000 unit Q12HR SQ Last administered on 06/06/20at 09:02; Start 06/05/20 at 21:00 Amlodipine Besylate (Norvasc) 10 mg HS PO Last administered on 06/05/20at 22:34; Start 06/05/20 at 23:00 Duloxetine HCl (Cymbalta) 60 mg DAILY PO Last administered on 06/06/20at 08:57; Start 06/06/20 at 09:00 Hydrochlorothiazide (Microzide) 12.5 mg DAILY PO Last administered on 06/06/20at 08:56; Start 06/06/20 at 09:00; Stop 06/06/20 at 09:54; Status DC Losartan Potassium (Cozaar) 100 mg DAILY PO Last administered on 06/06/20at 08:56; Start 06/06/20 at 09:00; Stop 06/06/20 at 09:54; Status DC Pantoprazole Sodium (Protonix) 40 mg DAILYAC PO Last administered on 06/06/20at 08:57; Start 06/06/20 at 07:30 Atorvastatin Calcium (Lipitor) 80 mg QHS PO Last administered on 06/05/20at 22:34; Start 06/05/20 at 23:00 Loxapine Succinate (Loxitane) 25 mg HS PO Last administered on 06/05/20at 22:29; Start 06/05/20 at 23:00 Albuterol Sulfate (Ventolin Neb Soln) 2.5 mg PRN Q4HRS PRN INH wheezing; Start 06/05/20 at 22:15 Potassium Chloride (Klor-Con) 40 meq 1X ONCE PO Last administered on 06/06/20at 09:37; Start 06/06/20 at 09:30; Stop 06/06/20 at 09:31; Status DC Sodium Chloride 1,000 ml @ 100 mls/hr Q10H IV Last administered on 06/06/20at 09:37; Start 06/06/20 at 09:30 Active Scripts Active Reported Ritalin (Methylphenidate Hcl) 20 Mg Tablet 1 Tab PO TID Crestor (Rosuvastatin Calcium) 40 Mg Tablet 1 Tab PO DAILY Proair Hfa Inhaler (Albuterol Sulfate) 8.5 Gm Hfa.aer.ad 2 Puff IH PRN Q4-6HRS PRN 21 Days Green Tea (Green Tea Susan Moore Extract) 1 Each Capsule 1 Each PO DAILY [Vitamin B12] DAILY [Vitamin C] DAILY [Vitamin D] DAILY Centrum Silver Tablet (Multivits-Min/Fa/Lycopene/Lut) 1 Each Tablet 1 Each PO DAILY Clonazepam 1 Mg Tablet 1 Mg PO TID PRN Trazodone Hcl 50 Mg Tablet 1 Tab PO QHS Loxapine (Loxapine Succinate) 25 Mg Capsule 25 Mg PO HS Cymbalta (Duloxetine Hcl) 60 Mg Capsule.dr 60 Mg PO DAILY Dicyclomine Hcl 10 Mg Capsule 1 Cap PO HS Amlodipine Besylate 10 Mg Tablet 10 Mg PO HS Omeprazole 40 Mg Capsule.dr 1 Cap PO DAILY Allergies Allergies: Coded Allergies: nifedipine (Verified Allergy, Intermediate, 06/05/20) YARELIS Inhibitors (Verified Adverse Reaction, Intermediate, cough, 06/05/20) ROS Review of System As per HPI, rest of the ROS is negative Physical Exam Physical Exam General: No acute distress HEENT: Atraumatic, Mucous membr. moist/pink Neck supple Lungs: Clear to auscultation, non labored Heart: Regular rate (SR),No rub Abdomen: Soft, No tenderness Extremities: No cyanosis, No edema Skin: No rash No significant lesion Neuro: AXO x3, grossly normal, No Asterexis Psych/Mental Status: Mental status NL, Mood NL No Live, No CVA or SP tenderness MS- Chronic Back pain, Lumbar stenosis, No other joint swellings or Gout etc Vital Signs Vital Signs Date Time Temp Pulse Resp B/P (MAP) Pulse Ox O2 Delivery O2 Flow Rate FiO2 06/06/20 08:56 85 134/67 06/06/20 08:34 96 Nasal Cannula 2.0 06/06/20 07:00 97.5 20 97.5 Assessment & Plan KENYA - ATN/ Chronic use of NSAID's , Non Oliguric , Improving renal function with IVF Check Pr/Cr , Renal US pending ,Continue IV hydration , supportive care,strict I/O, Bladder scan prn , Avoid Nephrotoxins, No NSAID's Hypokalemia- Replacing Mild acute on chronic diastolic CHF: compensated ?Narcolepsy: she is on ritalin Chronic LBBB COPD -still smokes HTN: controlled,per her gome list (reconciled in our system) she is only on Amlodipine Labs Labs Laboratory Tests Test 06/05/20 14:00 06/05/20 14:55 06/05/20 20:30 06/06/20 07:40 Urine Collection Type Unknown Urine Color Yellow Urine Clarity Clear Urine pH 5.0 (<5.0-8.0) Urine Specific [place] 1.010 (1.000-1.030) Urine Protein 30 mg/dL (NEG-TRACE) Urine Glucose (UA) Negative mg/dL (NEG) Urine Ketones (Stick) Negative mg/dL (NEG) Urine Blood Negative (NEG) Urine Nitrite Negative (NEG) Urine Bilirubin Negative (NEG) Urine Urobilinogen Dipstick 0.2 mg/dL (0.2 mg/dL) Urine Leukocyte Esterase Negative (NEG) Urine RBC 0 /HPF (0-2) Urine WBC 1-4 /HPF (0-4) Urine Squamous Epithelial Cells Mod /LPF Urine Amorphous Sediment Present /HPF Urine Bacteria 0 /HPF (0-FEW) Urine Cellular Casts Occ /HPF Urine Hyaline Casts Occasional /HPF Urine Granular Casts Few /HPF Urine Waxy Casts Few /HPF Urine Opiates Screen Neg (NEG) Urine Methadone Screen Neg (NEG) Urine Barbiturates Neg (NEG) Urine Phencyclidine Screen Neg (NEG) Urine Amphetamine/Methamphetamine Neg (NEG) Urine Benzodiazepines Screen Neg (NEG) Urine Cocaine Screen Neg (NEG) Urine Cannabinoids Screen Neg (NEG) Urine Ethyl Alcohol Neg (NEG) White Blood Count 7.6 x10^3/uL (4.0-11.0) 6.0 x10^3/uL (4.0-11.0) Red Blood Count 4.15 x10^6/uL (3.50-5.40) 4.08 x10^6/uL (3.50-5.40) Hemoglobin 13.8 g/dL (12.0-15.5) 13.3 g/dL (12.0-15.5) Hematocrit 38.3 % (36.0-47.0) 38.9 % (36.0-47.0) Mean Corpuscular Volume 92 fL (79-100) 95 fL (79-100) Mean Corpuscular Hemoglobin 33 pg (25-35) 33 pg (25-35) Mean Corpuscular Hemoglobin Concent 36 g/dL (31-37) 34 g/dL (31-37) Red Cell Distribution Width 13.6 % (11.5-14.5) 13.6 % (11.5-14.5) Platelet Count 220 x10^3/uL (140-400) 204 x10^3/uL (140-400) Neutrophils (%) (Auto) 78 % (31-73) 57 % (31-73) Lymphocytes (%) (Auto) 14 % (24-48) 28 % (24-48) Monocytes (%) (Auto) 7 % (0-9) 10 % (0-9) Eosinophils (%) (Auto) 1 % (0-3) 3 % (0-3) Basophils (%) (Auto) 1 % (0-3) 1 % (0-3) Neutrophils # (Auto) 5.9 x10^3/uL (1.8-7.7) 3.4 x10^3/uL (1.8-7.7) Lymphocytes # (Auto) 1.0 x10^3/uL (1.0-4.8) 1.7 x10^3/uL (1.0-4.8) Monocytes # (Auto) 0.5 x10^3/uL (0.0-1.1) 0.6 x10^3/uL (0.0-1.1) Eosinophils # (Auto) 0.1 x10^3/uL (0.0-0.7) 0.2 x10^3/uL (0.0-0.7) Basophils # (Auto) 0.1 x10^3/uL (0.0-0.2) 0.1 x10^3/uL (0.0-0.2) Prothrombin Time 12.4 SEC (11.7-14.0) Prothromb Time International Ratio 1.0 (0.8-1.1) Activated Partial Thromboplast Time 29 SEC (24-38) Sodium Level 141 mmol/L (136-145) 147 mmol/L (136-145) Potassium Level 2.7 mmol/L (3.5-5.1) 3.2 mmol/L (3.5-5.1) Chloride Level 100 mmol/L (98-107) 106 mmol/L (98-107) Carbon Dioxide Level 27 mmol/L (21-32) 29 mmol/L (21-32) Anion Gap 14 (6-14) 12 (6-14) Blood Urea Nitrogen 106 mg/dL (7-20) 87 mg/dL (7-20) Creatinine 6.7 mg/dL (0.6-1.0) 4.9 mg/dL (0.6-1.0) Estimated GFR (Cockcroft-Gault) 6.1 8.8 Glucose Level 145 mg/dL (70-99) 105 mg/dL (70-99) Calcium Level 8.9 mg/dL (8.5-10.1) 9.2 mg/dL (8.5-10.1) Magnesium Level 1.8 mg/dL (1.8-2.4) 2.1 mg/dL (1.8-2.4) Total Bilirubin 0.7 mg/dL (0.2-1.0) Direct Bilirubin 0.2 mg/dL (0.0-0.2) Aspartate Amino Transf (AST/SGOT) 13 U/L (15-37) Alanine Aminotransferase (ALT/SGPT) 25 U/L (14-59) Alkaline Phosphatase 96 U/L (46-116) Creatine Kinase 114 U/L (26-192) Troponin I Quantitative 0.059 ng/mL (0.000-0.055) 0.067 ng/mL (0.000-0.055) HN-Huh-Q-Type Natriuretic Peptide 1281 pg/mL (0-124) Total Protein 6.8 g/dL (6.4-8.2) Albumin 3.2 g/dL (3.4-5.0) Triglycerides Level 117 mg/dL (0-150) Cholesterol Level 187 mg/dL (0-200) LDL Cholesterol, Calculated 64 mg/dL (0-100) VLDL Cholesterol, Calculated 23 mg/dL (0-40) Non-HDL Cholesterol Calculated 87 mg/dL (0-129) HDL Cholesterol 100 mg/dL (40-60) Cholesterol/HDL Ratio 1.9 Laboratory Tests Test 06/05/20 14:00 06/05/20 14:55 06/05/20 20:30 06/06/20 07:40 Urine Collection Type Unknown Urine Color Yellow Urine Clarity Clear Urine pH 5.0 (<5.0-8.0) Urine Specific [place] 1.010 (1.000-1.030) Urine Protein 30 mg/dL (NEG-TRACE) Urine Glucose (UA) Negative mg/dL (NEG) Urine Ketones (Stick) Negative mg/dL (NEG) Urine Blood Negative (NEG) Urine Nitrite Negative (NEG) Urine Bilirubin Negative (NEG) Urine Urobilinogen Dipstick 0.2 mg/dL (0.2 mg/dL) Urine Leukocyte Esterase Negative (NEG) Urine RBC 0 /HPF (0-2) Urine WBC 1-4 /HPF (0-4) Urine Squamous Epithelial Cells Mod /LPF Urine Amorphous Sediment Present /HPF Urine Bacteria 0 /HPF (0-FEW) Urine Cellular Casts Occ /HPF Urine Hyaline Casts Occasional /HPF Urine Granular Casts Few /HPF Urine Waxy Casts Few /HPF Urine Opiates Screen Neg (NEG) Urine Methadone Screen Neg (NEG) Urine Barbiturates Neg (NEG) Urine Phencyclidine Screen Neg (NEG) Urine Amphetamine/Methamphetamine Neg (NEG) Urine Benzodiazepines Screen Neg (NEG) Urine Cocaine Screen Neg (NEG) Urine Cannabinoids Screen Neg (NEG) Urine Ethyl Alcohol Neg (NEG) White Blood Count 7.6 x10^3/uL (4.0-11.0) 6.0 x10^3/uL (4.0-11.0) Red Blood Count 4.15 x10^6/uL (3.50-5.40) 4.08 x10^6/uL (3.50-5.40) Hemoglobin 13.8 g/dL (12.0-15.5) 13.3 g/dL (12.0-15.5) Hematocrit 38.3 % (36.0-47.0) 38.9 % (36.0-47.0) Mean Corpuscular Volume 92 fL (79-100) 95 fL (79-100) Mean Corpuscular Hemoglobin 33 pg (25-35) 33 pg (25-35) Mean Corpuscular Hemoglobin Concent 36 g/dL (31-37) 34 g/dL (31-37) Red Cell Distribution Width 13.6 % (11.5-14.5) 13.6 % (11.5-14.5) Platelet Count 220 x10^3/uL (140-400) 204 x10^3/uL (140-400) Neutrophils (%) (Auto) 78 % (31-73) 57 % (31-73) Lymphocytes (%) (Auto) 14 % (24-48) 28 % (24-48) Monocytes (%) (Auto) 7 % (0-9) 10 % (0-9) Eosinophils (%) (Auto) 1 % (0-3) 3 % (0-3) Basophils (%) (Auto) 1 % (0-3) 1 % (0-3) Neutrophils # (Auto) 5.9 x10^3/uL (1.8-7.7) 3.4 x10^3/uL (1.8-7.7) Lymphocytes # (Auto) 1.0 x10^3/uL (1.0-4.8) 1.7 x10^3/uL (1.0-4.8) Monocytes # (Auto) 0.5 x10^3/uL (0.0-1.1) 0.6 x10^3/uL (0.0-1.1) Eosinophils # (Auto) 0.1 x10^3/uL (0.0-0.7) 0.2 x10^3/uL (0.0-0.7) Basophils # (Auto) 0.1 x10^3/uL (0.0-0.2) 0.1 x10^3/uL (0.0-0.2) Prothrombin Time 12.4 SEC (11.7-14.0) Prothromb Time International Ratio 1.0 (0.8-1.1) Activated Partial Thromboplast Time 29 SEC (24-38) Sodium Level 141 mmol/L (136-145) 147 mmol/L (136-145) Potassium Level 2.7 mmol/L (3.5-5.1) 3.2 mmol/L (3.5-5.1) Chloride Level 100 mmol/L (98-107) 106 mmol/L (98-107) Carbon Dioxide Level 27 mmol/L (21-32) 29 mmol/L (21-32) Anion Gap 14 (6-14) 12 (6-14) Blood Urea Nitrogen 106 mg/dL (7-20) 87 mg/dL (7-20) Creatinine 6.7 mg/dL (0.6-1.0) 4.9 mg/dL (0.6-1.0) Estimated GFR (Cockcroft-Gault) 6.1 8.8 Glucose Level 145 mg/dL (70-99) 105 mg/dL (70-99) Calcium Level 8.9 mg/dL (8.5-10.1) 9.2 mg/dL (8.5-10.1) Magnesium Level 1.8 mg/dL (1.8-2.4) 2.1 mg/dL (1.8-2.4) Total Bilirubin 0.7 mg/dL (0.2-1.0) Direct Bilirubin 0.2 mg/dL (0.0-0.2) Aspartate Amino Transf (AST/SGOT) 13 U/L (15-37) Alanine Aminotransferase (ALT/SGPT) 25 U/L (14-59) Alkaline Phosphatase 96 U/L (46-116) Creatine Kinase 114 U/L (26-192) Troponin I Quantitative 0.059 ng/mL (0.000-0.055) 0.067 ng/mL (0.000-0.055) HS-Wbu-B-Type Natriuretic Peptide 1281 pg/mL (0-124) Total Protein 6.8 g/dL (6.4-8.2) Albumin 3.2 g/dL (3.4-5.0) Triglycerides Level 117 mg/dL (0-150) Cholesterol Level 187 mg/dL (0-200) LDL Cholesterol, Calculated 64 mg/dL (0-100) VLDL Cholesterol, Calculated 23 mg/dL (0-40) Non-HDL Cholesterol Calculated 87 mg/dL (0-129) HDL Cholesterol 100 mg/dL (40-60) Cholesterol/HDL Ratio 1.9 Review All relevant outside records, renal labs, imaging studies, telemetry/EKG's were reviewed. PHYLLIS BHATT MD Jun 06, 2020 10:22
--- NOTE | 2020-06-06 10:31 | PDOC2 ---
DEMETRI SANTOS COMPLAINT SUPERVISOR 06/06/20 1031: CARDIAC CONSULT DATE OF CONSULT Date of Consult DATE: 06/06/20 TIME: 10:02 REASON FOR CONSULT Reason for Consult: NSTEMI REFERRING PHYSICIAN Referring Physician: [facility] SOURCE Source: Chart review, Patient HISTORY OF PRESENT ILLNESS HISTORY OF PRESENT ILLNESS This is a pleasant 70 yo female admitted for complains of abnormal renal labs. She went to her PCP's office and noted her renal labs were significnatly abnormal and in renal failure. Reports that in the last month her urine has been frothy and decreased. Denies any vomiting in the last month and no diarrhea and actually constipated and used miralax the other day but no diarrhea. Occasionally her fluid intake is diminished but has been compensating drinking about 64 oz a day fo total fluids. Denies any chest pain, SOA but has been having PND and actually had some leg swelling last Friday which is no absent. No palpitations, dizziness and no recent falls, injury or MVA. No recent imaging that required IV contrast. Reports that she takes mobic, losartan and HCTZ. No other OTC and no recreational drugs. She does take PRN aleve. Denies any kidney disease. Her last sleep study was 10 yrs ago. Last night she was noted with 88% on RA while asleep hence O2 was placed. Also there is no recent antibiotic use. she does feeling daytime somnolence which she explains why she is on ritalin. No hx of VTE, covid-19 s/s or exposure, CVA. No recent fever or chills. No coughing spells. Verbalized controlled BP at home. PAST MEDICAL HISTORY Cardiovascular: HTN, Hyperlipidemia Pulmonary: COPD CENTRAL NERVOUS SYSTEM: Carpal Tunnel Syndrome, Other (narcolepsy?) GI: Constipation Heme/Onc: No pertinent hx Hepatobiliary: No pertinent hx Psych: Anxiety Musculoskeletal: Osteoarthritis Rheumatologic: No pertinent hx Infectious disease: No pertinent hx ENT: No pertinent hx Renal/: No pertinent hx Endocrine: No pertinent hx Dermatology: No pertinent hx PAST SURGICAL HISTORY Past Surgical History: Tonsillectomy, Hysterectomy, Colon Resection FAMILY HISTORY Family History noncontributory to CV SOCIAL HISTORY Smoke: <1 pack per day ALCOHOL: other (vodka "2 drinks") Drugs: None Lives: with Family CURRENT MEDICATIONS CURRENT MEDICATIONS Current Medications Medications (Trade) Dose Ordered Sig/Esme Route PRN Reason Start Time Stop Time Status Last Admin Dose Admin Sodium Chloride 1,000 ml @ 1,000 mls/hr 1X ONCE IV 06/05/20 17:00 06/05/20 17:59 DC 06/05/20 16:56 Potassium Bicarbonate (Potassium Effervescent Tablet) 40 meq 1X ONCE PO 06/05/20 17:00 06/05/20 17:01 DC 06/05/20 17:00 Magnesium Sulfate 50 ml @ 25 mls/hr 1X ONCE IV 06/05/20 17:00 06/05/20 18:59 DC 06/05/20 17:09 Potassium Chloride/Sodium Chloride 1,000 ml @ 100 mls/hr Q10H IV 06/05/20 17:00 06/06/20 02:59 DC 06/05/20 18:13 Dicyclomine HCl (Bentyl) 10 mg DAILY PO 06/06/20 09:00 06/06/20 08:57 Trazodone HCl (Desyrel) 50 mg QHS PO 06/05/20 21:00 06/05/20 21:26 Clonazepam (KlonoPIN) 1 mg DAILY PO 06/06/20 09:00 06/06/20 08:57 Heparin Sodium (Porcine) (Heparin Sodium) 5,000 unit Q12HR SQ 06/05/20 21:00 06/06/20 09:02 Amlodipine Besylate (Norvasc) 10 mg HS PO 06/05/20 23:00 06/05/20 22:34 Duloxetine HCl (Cymbalta) 60 mg DAILY PO 06/06/20 09:00 06/06/20 08:57 Hydrochlorothiazide (Microzide) 12.5 mg DAILY PO 06/06/20 09:00 06/06/20 09:54 DC 06/06/20 08:56 Losartan Potassium (Cozaar) 100 mg DAILY PO 06/06/20 09:00 06/06/20 09:54 DC 06/06/20 08:56 Pantoprazole Sodium (Protonix) 40 mg DAILYAC PO 06/06/20 07:30 06/06/20 08:57 Atorvastatin Calcium (Lipitor) 80 mg QHS PO 06/05/20 23:00 06/05/20 22:34 Loxapine Succinate (Loxitane) 25 mg HS PO 06/05/20 23:00 06/05/20 22:29 Potassium Chloride (Klor-Con) 40 meq 1X ONCE PO 06/06/20 09:30 06/06/20 09:31 DC 06/06/20 09:37 Sodium Chloride 1,000 ml @ 100 mls/hr Q10H IV 06/06/20 09:30 06/06/20 09:37 ALLERGIES ALLERGIES: Coded Allergies: nifedipine (Verified Allergy, Intermediate, 06/05/20) YARELIS Inhibitors (Verified Adverse Reaction, Intermediate, cough, 06/05/20) ROS Review of System 14 point ROS evaluated with pertinent positives noted per HPI PHYSICAL EXAM General: Alert, Oriented X3, Cooperative, No acute distress HEENT: Atraumatic, Mucous membr. moist/pink Lungs: Clear to auscultation, Normal air movement Heart: Regular rate (SR), Normal S1, Normal S2, Other (3/6 systolic murmur to LLS border) Abdomen: Soft, No tenderness Extremities: No cyanosis, No edema Skin: No breakdown, No significant lesion Neuro: Normal speech, Sensation intact Psych/Mental Status: Mental status NL, Mood NL MUSCULOSKELETAL: Osteoarthritic changes both hands VITALS/I&O VITALS/I&O: Vital Signs Date Time Temp Pulse Resp B/P (MAP) Pulse Ox O2 Delivery O2 Flow Rate FiO2 06/06/20 08:56 85 134/67 06/06/20 08:34 96 Nasal Cannula 2.0 06/06/20 07:00 97.5 20 97.5 I & O 06/05/20 06/05/20 06/06/20 15:00 23:00 07:00 Intake Total 100 ml 500 ml Output Total 600 ml 800 ml Balance -500 ml -300 ml LABS Lab: Laboratory Tests Test 06/05/20 14:00 06/05/20 14:55 06/05/20 20:30 06/06/20 07:40 Urine Collection Type Unknown Urine Color Yellow Urine Clarity Clear Urine pH 5.0 (<5.0-8.0) Urine Specific Max 1.010 (1.000-1.030) Urine Protein 30 mg/dL (NEG-TRACE) Urine Glucose (UA) Negative mg/dL (NEG) Urine Ketones (Stick) Negative mg/dL (NEG) Urine Blood Negative (NEG) Urine Nitrite Negative (NEG) Urine Bilirubin Negative (NEG) Urine Urobilinogen Dipstick 0.2 mg/dL (0.2 mg/dL) Urine Leukocyte Esterase Negative (NEG) Urine RBC 0 /HPF (0-2) Urine WBC 1-4 /HPF (0-4) Urine Squamous Epithelial Cells Mod /LPF Urine Amorphous Sediment Present /HPF Urine Bacteria 0 /HPF (0-FEW) Urine Cellular Casts Occ /HPF Urine Hyaline Casts Occasional /HPF Urine Granular Casts Few /HPF Urine Waxy Casts Few /HPF Urine Opiates Screen Neg (NEG) Urine Methadone Screen Neg (NEG) Urine Barbiturates Neg (NEG) Urine Phencyclidine Screen Neg (NEG) Urine Amphetamine/Methamphetamine Neg (NEG) Urine Benzodiazepines Screen Neg (NEG) Urine Cocaine Screen Neg (NEG) Urine Cannabinoids Screen Neg (NEG) Urine Ethyl Alcohol Neg (NEG) White Blood Count 7.6 x10^3/uL (4.0-11.0) 6.0 x10^3/uL (4.0-11.0) Red Blood Count 4.15 x10^6/uL (3.50-5.40) 4.08 x10^6/uL (3.50-5.40) Hemoglobin 13.8 g/dL (12.0-15.5) 13.3 g/dL (12.0-15.5) Hematocrit 38.3 % (36.0-47.0) 38.9 % (36.0-47.0) Mean Corpuscular Volume 92 fL (79-100) 95 fL (79-100) Mean Corpuscular Hemoglobin 33 pg (25-35) 33 pg (25-35) Mean Corpuscular Hemoglobin Concent 36 g/dL (31-37) 34 g/dL (31-37) Red Cell Distribution Width 13.6 % (11.5-14.5) 13.6 % (11.5-14.5) Platelet Count 220 x10^3/uL (140-400) 204 x10^3/uL (140-400) Neutrophils (%) (Auto) 78 % (31-73) H 57 % (31-73) Lymphocytes (%) (Auto) 14 % (24-48) L 28 % (24-48) Monocytes (%) (Auto) 7 % (0-9) 10 % (0-9) H Eosinophils (%) (Auto) 1 % (0-3) 3 % (0-3) Basophils (%) (Auto) 1 % (0-3) 1 % (0-3) Neutrophils # (Auto) 5.9 x10^3/uL (1.8-7.7) 3.4 x10^3/uL (1.8-7.7) Lymphocytes # (Auto) 1.0 x10^3/uL (1.0-4.8) 1.7 x10^3/uL (1.0-4.8) Monocytes # (Auto) 0.5 x10^3/uL (0.0-1.1) 0.6 x10^3/uL (0.0-1.1) Eosinophils # (Auto) 0.1 x10^3/uL (0.0-0.7) 0.2 x10^3/uL (0.0-0.7) Basophils # (Auto) 0.1 x10^3/uL (0.0-0.2) 0.1 x10^3/uL (0.0-0.2) Prothrombin Time 12.4 SEC (11.7-14.0) Prothrombin Time INR 1.0 (0.8-1.1) Activated Partial Thromboplast Time 29 SEC (24-38) Sodium Level 141 mmol/L (136-145) 147 mmol/L (136-145) H Potassium Level 2.7 mmol/L (3.5-5.1) *L 3.2 mmol/L (3.5-5.1) L Chloride Level 100 mmol/L (98-107) 106 mmol/L (98-107) Carbon Dioxide Level 27 mmol/L (21-32) 29 mmol/L (21-32) Anion Gap 14 (6-14) 12 (6-14) Blood Urea Nitrogen 106 mg/dL (7-20) H 87 mg/dL (7-20) H Creatinine 6.7 mg/dL (0.6-1.0) H 4.9 mg/dL (0.6-1.0) H Estimated GFR (Cockcroft-Gault) 6.1 8.8 Glucose Level 145 mg/dL (70-99) H 105 mg/dL (70-99) H Calcium Level 8.9 mg/dL (8.5-10.1) 9.2 mg/dL (8.5-10.1) Magnesium Level 1.8 mg/dL (1.8-2.4) 2.1 mg/dL (1.8-2.4) Total Bilirubin 0.7 mg/dL (0.2-1.0) Direct Bilirubin 0.2 mg/dL (0.0-0.2) Aspartate Amino Transferase (AST) 13 U/L (15-37) L Alanine Aminotransferase (ALT) 25 U/L (14-59) Alkaline Phosphatase 96 U/L (46-116) Creatine Kinase 114 U/L (26-192) Troponin I Quantitative 0.059 ng/mL (0.000-0.055) 0.067 ng/mL (0.000-0.055) NU-Fwo-V-Type Natriuretic Peptide 1281 pg/mL (0-124) H Total Protein 6.8 g/dL (6.4-8.2) Albumin 3.2 g/dL (3.4-5.0) L Triglycerides Level 117 mg/dL (0-150) Cholesterol Level 187 mg/dL (0-200) LDL Cholesterol, Calculated 64 mg/dL (0-100) VLDL Cholesterol, Calculated 23 mg/dL (0-40) Non-HDL Cholesterol Calculated 87 mg/dL (0-129) HDL Cholesterol 100 mg/dL (40-60) H Cholesterol/HDL Ratio 1.9 Laboratory Tests 06/05/20 14:55 06/06/20 07:40 Laboratory Tests 06/05/20 14:55 06/06/20 07:40 ECHOCARDIOGRAM ECHOCARDIOGRAM <Conclusion> Left ventricle systolic function is low normal. The Ejection Fraction is 50-55%. Septal motion suggestive of conduction defect. Doppler and Color Flow revealed mild tricuspid regurgitation. There is mild- moderate pulmonary hypertension. The PA pressure was estimated at 40 mmHg. DATE: 12/02/18 0928 STRESS TEST STRESS TEST Conclusion 1. Regadenoson cardioisotope stress test did not show any evidence of ischemia or infarct. 2. Normal left ventricular systolic function with ejection fraction calculated at 74%. 3. Low risk for cardiac events. DATE: 12/02/18 1327 ASSESSMENT/PLAN ASSESSMENT/PLAN 1. Acute renal failure/uremia: CK nml no recent IV contrast exposure and no Abx use. 2. Hypokalemia 3. Mild acute on chronic diastolic CHF: compensated 4. Highly suspect SACHIN 5. ?Narcolepsy: she is on ritalin 6. Chronic LBBB 7. Mild troponin elevation: no acute EKG changes. Trop peaked at 0.06, doubt ACS, suspect demand mediated as above 8. COPD with continued tobaccoism: stable. 9. HTN: controlled 10. HLP 11. OA with mobic use 12. Possible ETOH misues: "2 drinks" a day Recommendations 1. Continue with aggressive IV hydration. Consult nephrology. 2. Stop losarta/HCTZ. Stop Mobic and other NSAIDs. Obtain renal sono. Hold ASA for now. 3. Replace K 4. TTE pending. ABG. O2 to titrate Hold clonzepam 5. Will consider for outpt stress test. 6. May resume norvasc. May decrease crestor dose 7. Smoking cessation. ETOH abstinence 8. will need outpt sleep study JAMAL LYONS MD 06/06/20 1432: CARDIAC CONSULT ASSESSMENT/PLAN ASSESSMENT/PLAN Patient seen and examined. Agree with LANDFILL GAS TECHNICIAN's assessment and plan. Slight troponin elevation probably demand ischemia. 2D echo showed normal LV systolic function without any wall motion abnormalities. Plan for ischemic evaluation as an outpatient. Continue current work-up and treatment of acute renal insufficiency per nephrology team. Thank you for your consultation DEMETRI SANTOS APRN Jun 06, 2020 10:31 JAMAL LYONS MD Jun 06, 2020 14:32
[2020-06-06 10:56] LABS: C-REACTIVE PROTEIN 11.4 mg/L (0-3.3)
[2020-06-06 11:08] VITALS: BP 148/74
[2020-06-06 11:50] LABS: BASE EXCESS ABG 1 mmol/L (-3-3); HCO3 ABG 25 mmol/L (21-28); PCO2 ABG 39 mmHg (35-46); PO2 ABG 62 mmHg (65-108); SAT O2 ABG 92 % (92-99)
[2020-06-06 11:54] LABS: FIO2 ABG RA
--- NOTE | 2020-06-06 12:49 | CARD ---
MR#: [id number] Date of Study: 06/06/2020 Ordering Physician: TOMER MARISCAL, Referring Physician: TOMER MARISCAL, Tech: Lesli Sheth RDCS APPROVED REPORT EXAM: Two-dimensional and M-mode echocardiogram with Doppler and color Doppler. Other Information Quality : Good Technically limited study due to body habitus. INDICATION Hypertension/HCVD Non STEMI 2D DIMENSIONS RVDd2.9 (2.9-3.5cm)Left Atrium(2D)3.3 (1.6-4.0cm) IVSd0.9 (0.7-1.1cm)Aortic Root(2D)2.6 (2.0-3.7cm) LVDd4.0 (3.9-5.9cm)LVOT Diameter2.0 (1.8-2.4cm) PWd1.0 (0.7-1.1cm)LVDs2.9 (2.5-4.0cm) FS (%) 28.2 %SV39.3 ml LVEF(%)55.1 (>50%) Aortic Valve AoV Peak Paul.171.1cm/sAoV VTI30.8cm AO Peak GR.11.7mmHgLVOT Peak Paul.175.4cm/s LVOT VTI 31.98cmAO Mean GR.7mmHg YAZMIN (VMAX)3.10lw0PUJ (VTI)3.18cm2 Mitral Valve MV E Ajlontom73.2cm/sMV DECEL [id number] MV A Ahbqlsag520.8cm/sMV VJY85hm E/A Ratio0.7MVA (PHT)2.64cm2 TDI E/Lateral E'12.4E/Medial E'17.4 Tricuspid Valve TR P. Vsyosqqw157jn/sRAP EMKILEFS9qwMj TR Peak Gr.71doOsQQOI11sjHv Pulmonary Vein S1 Wrzodjak59.7cm/sD2 Qdzpiilt73.5cm/s LEFT VENTRICLE The left ventricle is normal size. There is normal left ventricular wall thickness. The left ventricu lar systolic function is normal and the ejection fraction is within normal range. The Ejection Fracti on is 55-60%. There is normal LV segmental wall motion. Transmitral Doppler flow pattern is Grade I-a bnormal relaxation pattern. RIGHT VENTRICLE The right ventricle is normal size. The right ventricular systolic function is normal. ATRIA The left atrium size is normal. The right atrium size is normal. The interatrial septum is intact wit h no evidence for an atrial septal defect or patent foramen ovale as noted on 2-D or Doppler imaging. AORTIC VALVE The aortic valve is not well visualized but appears to be functioning normally by Doppler interrogati on. Doppler and Color Flow revealed no significant aortic regurgitation. There is no significant aort ic valvular stenosis. MITRAL VALVE The mitral valve is calcified but opens well. There is no evidence of mitral valve prolapse. There is no mitral valve stenosis. Doppler and Color-flow revealed trace mitral regurgitation. TRICUSPID VALVE The tricuspid valve is normal in structure and function. Doppler and Color Flow revealed trace tricus pid regurgitation. There is moderate pulmonary hypertension. The PA pressure was estimated at 47 mmHg . There is no tricuspid valve stenosis. PULMONIC VALVE The pulmonic valve is not well visualized. Doppler and Color Flow revealed no pulmonic valvular regur gitation. There is no pulmonic valvular stenosis. GREAT VESSELS The aortic root is normal in size. The ascending aorta is normal in size. The IVC is normal in size a nd collapses >50% with inspiration. PERICARDIAL EFFUSION There is no evidence of significant pericardial effusion. Critical Notification Critical Value: No <Conclusion> The left ventricular systolic function is normal and the ejection fraction is within normal range. Th e Ejection Fraction is 55-60%. There is normal LV segmental wall motion. Doppler and Color Flow revealed trace tricuspid regurgitation. There is moderate pulmonary hypertensi on. The PA pressure was estimated at 47 mmHg. Signed by : Ricki Paredes, Electronically Approved : 06/06/2020 12:49:28
--- NOTE | 2020-06-06 14:28 | NUR ---
SS following for discharge planning. SS reviewed pt chart and discussed with pt RN. Pt is from home and is currently requiring oxygen at two liters nasal canula. Cardiology and Nephrology consulted. Pt has KENYA. Potassium low and creat high. Pt had ECHO today. SS will continue to follow for discharge planning.
[2020-06-06 15:07] VITALS: BP 135/72
--- NOTE | 2020-06-06 15:21 | RAD ---
MR#: [id number] Date of Study: 06/06/2020 Ordering Physician: DEMETRI SANTOS, Referring Physician: DEMETRI SANTOS, Tech: Hui Fritz, MOHSEN, RVT, RTR APPROVED REPORT Patient Location: IN-PATIENT Indications Uncontrolled HTN Acute Renal Failure Renal Artery Doppler Right Renal Artery Left Renal Arter y Mid 49.3/15.9 cm/secMid 96.0/28.9 cm/sec Distal 58.1/11.1 cm/secDistal 68.3/19.7 cm/sec Renal/Aorta Ratio 0.46Renal/Aorta Ratio 0.77 Mid Resistive Index 0.68Mid Resistive Index 0.70 Distal Resistive Index 0.81Distal Resistive Index 0.71 Rt. Segmental A. 17.9/4.6 cm/secLt. Segmental A. Renal Measurements RightLeft Kidney Lruayw32 cm 4.7 cmKidney Nttiiv99 cm 4.3 cm Right Additional FindingsLeft Additional Findings Structure: mass2.8/2.5 cm/s Possible Left Renal mass 2.8 x 2.5 cm Aortic Doppler VelocityWaveform Proximal Aorta 124.4 cm/sec Findings Grayscale images of the bilateral kidneys and renal vessels were technically limited due to bowel gas and body habitus On the right side the mid and distal renal arteries did not demonstrate any evidence of obstruction b ased on velocity criteria. There is cortical hypertrophy and evidence of medical renal disease. Nor mal aortic velocities are noted. On the left side again the proximal renal artery is not well visualized. There is a left renal mass in the midsegment measuring approximately 2.8 x 2.5 cm suggestive of either of a complex cyst versus other mass, this mass is not well visualized due to the technically limited images. Velocities on th e left side are otherwise unremarkable without any evidence of renal artery stenosis. Critical Notification Critical Value: No <Conclusion> 1. No significant renal artery stenosis bilaterally 2. Possible left-sided renal mass measuring 2.8 x 2.5 cm, consider CT with contrast for further eval uation 3. Technically limited study. Signed by : Ricki Paredes, Electronically Approved : 06/06/2020 15:20:37
[2020-06-06 17:48] LABS: CREATININE,RANDOM URINE 44.5 mg/dL (Not Establ.)
[2020-06-06 18:51] VITALS: BP 144/73
[2020-06-06] MEDS: ATORVASTATIN CALCIUM 40 MG TABLET. PO SCH (22:12)
[2020-06-06] MEDS: LOXAPINE SUCCINATE 25 MG CAPSULE PO SCH (22:12)
[2020-06-06] MEDS: traZODone 50 MG TABLET. PO SCH (22:12)
[2020-06-06 23:13] VITALS: BP 146/71
[2020-06-07 03:10] VITALS: BP 144/77
[2020-06-07] MEDS: IV NORMAL SALINE 1000ML BAG 1,000 ML IV SCH ×2 (05:57→17:40)
--- NOTE | 2020-06-07 06:03 | NUR ---
Patient denies narcolepsy or having taken ritalin.
[2020-06-07 06:13] LABS: CALCIUM 8.5 mg/dL (8.5-10.1); CREATININE 3.5 mg/dL (0.6-1.0)
[2020-06-07 07:00] VITALS: BP 161/80
[2020-06-07] MEDS: DICYCLOMINE HCL 10 MG CAPSULE PO SCH (08:22)
[2020-06-07] MEDS: DULoxetine HCL 30 MG CAPSULE.DR PO SCH (08:22)
[2020-06-07] MEDS: PANTOPRAZOLE 40 MG TABLET.DR. PO SCH (08:22)
[2020-06-07] MEDS: HEPARIN for SUB-Q USE 5,000 UNIT/ML VIAL. SQ SCH ×2 (08:33→20:51)
--- NOTE | 2020-06-07 09:38 | PDOC ---
[employer] PROGRESS NOTE Date of Service DOS: DATE: 06/07/20 TIME: 09:35 Chief Complaint Chief Complaint Assessment/Plan Acute renal failure Hypokalemia Elevated troponin Elevated BNP Plan: Provide continuous IV fluids Consult to nephrology Will obtain urine osmoles, serum osmole, urine potassium Continue to trend troponins; likely elevated in setting of acute renal failure; will consult cardiology if troponins continue to increase Echocardiogram pending Resume home medications FEN - Cardiac diet PPX - Lovenox FULL CODE Dispo - inpatient for above History of Present Illness History of Present Illness Patient is a 70-year-old female past medical history of hypertension, COPD, who presents to the ER at the behest of her primary care provider for concerns of hypokalemia renal failure. She was seen at [facility] ER 1 week ago due to 5- day history of constipation. She was treated with enema with improvement of her constipation, and followed up with her PCP 3 days ago. Some routine lab work was obtained that showed potassium 2.8, BUN 101, creatinine 10. Repeat lab work in the ER showed potassium 2.7, BUN 106, creatinine 6.7. Patient denies any recent history of vomiting, fever, or diarrhea. Will admit patient for further medical management. 06/06: Patient seen and evaluated. She has no complaints. Creatinine 6.7 yesterday, creatinine 4.9 today. Continue IV fluids, avoid nephrotoxins. Will follow cardiology and nephrology recommendations. 06/07: Creatinine continues to improve. Creatinine 4.9 yesterday 3.5 today. Continue with IV fluid. Avoid NSAIDs, continue holding lisinopril. Echocardiogram showed normal LV systolic function without any wall motion abnormalities. Elevation in troponins likely demand ischemia. Cardiology recommended ischemic evaluation as an outpatient. Renal artery duplex yesterday showed no significant renal artery stenosis bilaterally, possible left-sided renal mass measuring 2.[address] abdomen/pelvis with contrast today is pending. Vitals/I&O Vitals/I&O: Vital Signs Date Time Temp Pulse Resp B/P (MAP) Pulse Ox O2 Delivery O2 Flow Rate FiO2 06/07/20 07:00 98.8 82 18 161/80 (107) 97 Nasal Cannula 2.0 98.8 I & O 06/06/20 06/06/20 06/07/20 15:00 23:00 07:00 Intake Total 480 ml 1480 ml 120 ml Output Total 650 ml 1000 ml 800 ml Balance -170 ml 480 ml -680 ml Physical Exam General: Alert, Oriented X3, Cooperative, No acute distress Heart: Regular rate (SR), Normal S1, Normal S2, Other (3/6 systolic murmur to LLS border) Lungs: Clear Abdomen: Soft, No tenderness Extremities: No cyanosis, No edema Skin: No breakdown, No significant lesion Labs Labs: Laboratory Tests Test 06/06/20 10:31 06/06/20 15:40 06/07/20 05:45 O2 Saturation 92 % (92-99) Arterial Blood pH 7.43 (7.35-7.45) Arterial Blood pCO2 at Patient Temp 39 mmHg (35-46) Arterial Blood pO2 at Patient Temp 62 mmHg (65-108) Arterial Blood HCO3 25 mmol/L (21-28) Arterial Blood Base Excess 1 mmol/L (-3-3) FiO2 Ra Urine Random Creatinine 44.5 mg/dL (Not Establ.) Urine Random Total Protein 22.7 mg/dL (Not Establ.) Urine Protein/Creatinine Ratio 510 mg/g (0-200) Sodium Level 148 mmol/L (136-145) Potassium Level 3.0 mmol/L (3.5-5.1) Chloride Level 108 mmol/L (98-107) Carbon Dioxide Level 30 mmol/L (21-32) Anion Gap 10 (6-14) Blood Urea Nitrogen 69 mg/dL (7-20) Creatinine 3.5 mg/dL (0.6-1.0) Estimated GFR (Cockcroft-Gault) 13.0 Glucose Level 105 mg/dL (70-99) Calcium Level 8.5 mg/dL (8.5-10.1) Assessment and Plan Assessmemt and Plan Problems Medical Problems: (1) Hypokalemia Status: Acute (2) NSTEMI (non-ST elevated myocardial infarction) Status: Acute (3) Prerenal acute renal failure Status: Acute Comment Review of Relevant I have reviewed the following items kiana (where applicable) has been applied. Justifications for Admission Other Justification Acute renal failure, hypokalemia TOMER MARISCAL MD Jun 07, 2020 09:38
--- NOTE | 2020-06-07 09:56 | PDOC ---
DATE OF SERVICE DATE: 06/07/20 TIME: 09:51 SUBJECTIVE ROS States feeling better OBJECTIVE Vital Signs Vital Signs Date Time Temp Pulse Resp B/P (MAP) Pulse Ox O2 Delivery O2 Flow Rate FiO2 06/07/20 07:00 98.8 82 18 161/80 (107) 97 Nasal Cannula 2.0 98.8 I & 0 Intake and Output 06/07/20 07:00 Intake Total 2080 ml Output Total 2450 ml Balance -370 ml Intake Oral 1080 ml IV Total 1000 ml Output Urine Total 2450 ml PHYSICAL EXAM Physical Exam General: No acute distress HEENT: Atraumatic, Mucous membr. moist/pink Neck supple Lungs: Clear to auscultation, non labored Heart: Regular rate (SR),No rub Abdomen: Soft, No tenderness Extremities: No cyanosis, No edema Skin: No rash No significant lesion Neuro: AXO x3, grossly normal, No Asterexis Psych/Mental Status: Mental status NL, Mood NL No Live, No CVA or SP tenderness MS- Chronic Back pain, Lumbar stenosis, No other joint swellings or Gout etc DIAGNOSIS/ASSESSMENT Assessment & Plan KENYA - ATN/ Chronic use of NSAID's , Non Oliguric , Improving renal function with IVF Low grade proteinuria , no Micr hematuria, unlikely GN Renal US No e/o obstructive etiology, No CELESTINA, Continue IV hydration , supportive care,strict I/O, Bladder scan prn , Avoid Nephrotoxins, No NSAID's Possible left-sided renal mass measuring 2.8 x 2.5 cm on US, would hold off contrast CT 2/[address] after KENYA resolved and fu with Urology if indicated Hypokalemia- Replace HyperNatemia - switch to Hypotonic gtt D5W 1/2 NS Mild acute on chronic diastolic CHF: compensated ?Narcolepsy: she is on ritalin Chronic LBBB COPD -still smokes HTN: controlled,per her gome list (reconciled in our system) she is only on Amlodipine COMMENT/RELEVANT DATA Meds Current Medications Medications (Trade) Dose Ordered Sig/Esme Start Time Stop Time Status Last Admin Dose Admin Acetaminophen (Tylenol) 650 mg PRN Q6HRS PRN 06/05/20 18:15 Al Hydroxide/Mg Hydroxide (Mylanta Plus Xs) 30 ml PRN Q3HRS PRN 06/05/20 18:15 Cancel Albuterol Sulfate (Ventolin Neb Soln) 2.5 mg PRN Q4HRS PRN 06/05/20 22:15 Amlodipine Besylate (Norvasc) 10 mg HS 06/05/20 23:00 06/06/20 22:12 10 MG Atorvastatin Calcium (Lipitor) 80 mg QHS 06/05/20 23:00 06/06/20 22:12 80 MG Bisacodyl (Dulcolax Supp) 10 mg PRN DAILY PRN 06/05/20 18:15 Calcium Carbonate/ Glycine (Tums) 500 mg PRN Q3HRS PRN 06/05/20 18:15 Clonazepam (KlonoPIN) 1 mg DAILY 06/06/20 09:00 06/06/20 10:52 DC 06/06/20 08:57 1 MG Dicyclomine HCl (Bentyl) 10 mg DAILY 06/06/20 09:00 06/07/20 08:22 10 MG Duloxetine HCl (Cymbalta) 60 mg DAILY 06/06/20 09:00 06/07/20 08:22 60 MG Heparin Sodium (Porcine) (Heparin Sodium) 5,000 unit Q12HR 06/05/20 21:00 06/07/20 08:33 5,000 UNIT Hydrochlorothiazide (Microzide) 12.5 mg DAILY 06/06/20 09:00 06/06/20 09:54 DC 06/06/20 08:56 12.5 MG Losartan Potassium (Cozaar) 100 mg DAILY 06/06/20 09:00 06/06/20 09:54 DC 06/06/20 08:56 100 MG Loxapine Succinate (Loxitane) 25 mg HS 06/05/20 23:00 06/06/20 22:12 25 MG Magnesium Hydroxide (Milk Of Magnesia) 2,400 mg PRN Q12HR PRN 06/05/20 18:15 Cancel Magnesium Sulfate 50 ml @ 25 mls/hr 1X ONCE 06/05/20 17:00 06/05/20 18:59 DC 06/05/20 17:09 25 MLS/HR Morphine Sulfate (Morphine Sulfate) 2 mg PRN Q1HR PRN 06/05/20 18:15 Ondansetron HCl (Zofran) 4 mg PRN Q6HRS PRN 06/05/20 18:15 Pantoprazole Sodium (Protonix) 40 mg DAILYAC 06/06/20 07:30 06/07/20 08:22 40 MG Potassium Bicarbonate (Potassium Effervescent Tablet) 40 meq 1X ONCE 06/05/20 17:00 06/05/20 17:01 DC 06/05/20 17:00 40 MEQ Potassium Chloride/Sodium Chloride 1,000 ml @ 100 mls/hr Q10H 06/05/20 17:00 06/06/20 02:59 DC 06/05/20 18:13 100 MLS/HR Potassium Chloride (Klor-Con) 40 meq 1X ONCE 06/06/20 09:30 06/06/20 09:31 DC 06/06/20 09:37 40 MEQ Sodium Chloride 1,000 ml @ 100 mls/hr Q10H 06/06/20 09:30 06/07/20 05:57 100 MLS/HR Trazodone HCl (Desyrel) 50 mg QHS 06/05/20 21:00 06/06/20 22:12 50 MG Zolpidem Tartrate (Ambien) 5 mg PRN QHS PRN 06/05/20 18:15 Lab Laboratory Tests Test 06/06/20 10:31 06/06/20 15:40 06/07/20 05:45 O2 Saturation 92 % (92-99) Arterial Blood pH 7.43 (7.35-7.45) Arterial Blood pCO2 at Patient Temp 39 mmHg (35-46) Arterial Blood pO2 at Patient Temp 62 mmHg (65-108) Arterial Blood HCO3 25 mmol/L (21-28) Arterial Blood Base Excess 1 mmol/L (-3-3) FiO2 Ra Urine Random Creatinine 44.5 mg/dL (Not Establ.) Urine Random Total Protein 22.7 mg/dL (Not Establ.) Urine Protein/Creatinine Ratio 510 mg/g (0-200) Sodium Level 148 mmol/L (136-145) Potassium Level 3.0 mmol/L (3.5-5.1) Chloride Level 108 mmol/L (98-107) Carbon Dioxide Level 30 mmol/L (21-32) Anion Gap 10 (6-14) Blood Urea Nitrogen 69 mg/dL (7-20) Creatinine 3.5 mg/dL (0.6-1.0) Estimated GFR (Cockcroft-Gault) 13.0 Glucose Level 105 mg/dL (70-99) Calcium Level 8.5 mg/dL (8.5-10.1) Results All relevant outside records, renal labs, imaging studies, telemetry/EKG's were reviewed. Justicifation of Admission Dx: Justifications for Admission: Justification of Admission Dx: Yes Acute Renal Failure: 3-Fold Rise in Serum Crea PHYLLIS BHATT MD Jun 07, 2020 09:56
[2020-06-07] MEDS ORDERED: POTASSIUM BICARB 20 MEQ EFFERVESCENT TABLET. PO ONE (10:15)
[2020-06-07] MEDS: METHYLPHENIDATE HCL 5 MG TABLET PO SCH ×2 (10:58→17:38)
[2020-06-07 11:00] VITALS: BP 160/82
--- NOTE | 2020-06-07 13:11 | NUR ---
SS following up with discharge planning. SS reviewed pt chart and discussed with pt RN. Pt is currently requiring oxygen at two liters nasal canula. Pt having pelvic CT today. SS will continue to follow for discharge planning.
--- NOTE | 2020-06-07 13:27 | PDOC5 ---
CODE REPORT CODE REPORT Responded to code blue on the floor. Per nursing report, patient got up with PT today and afterwards became bradycardiac before going into asystole. CPR was started prior to my arrival and patient was given epinephrine. Shortly after arrival, ROSC was obtain as a bradycardic sinus rhythm. Atropine was given. Patient was awake, following commands, and fighting the mask. Decision was made to hold off on intubation. Further care to be dictated by primary team. TOBY LE MD Jun 07, 2020 13:26
--- NOTE | 2020-06-07 14:42 | PDOC ---
DEMETRI SANTOS LIFE MANAGER 06/07/20 1442: CARDIO Progress Notes Date and Time Date of Service 06/07/2020 Time of Evaluation 1100 Subjective Subjective: No Chest Pain, No shortness of breath, No Palpitations Vitals Vitals Vital Signs Date Time Temp Pulse Resp B/P (MAP) Pulse Ox O2 Delivery O2 Flow Rate FiO2 06/07/20 11:00 99.2 78 18 160/82 (108) 98 Nasal Cannula 2.0 99.2 Weight Weight [ ] Input and Output Intake and Output Intake and Output 06/07/20 07:00 Intake Total 2080 ml Output Total 2450 ml Balance -370 ml Intake Oral 1080 ml IV Total 1000 ml Output Urine Total 2450 ml Laboratory Labs Laboratory Tests Test 06/06/20 15:40 06/07/20 05:45 Urine Osmolality 352 mOsmol/kg (.) Urine Random Creatinine 44.5 mg/dL (Not Establ.) Urine Random Total Protein 22.7 mg/dL (Not Establ.) Urine Protein/Creatinine Ratio 510 mg/g (0-200) Sodium Level 148 mmol/L (136-145) Potassium Level 3.0 mmol/L (3.5-5.1) Chloride Level 108 mmol/L (98-107) Carbon Dioxide Level 30 mmol/L (21-32) Anion Gap 10 (6-14) Blood Urea Nitrogen 69 mg/dL (7-20) Creatinine 3.5 mg/dL (0.6-1.0) Estimated GFR (Cockcroft-Gault) 13.0 Glucose Level 105 mg/dL (70-99) Calcium Level 8.5 mg/dL (8.5-10.1) Physical Exam HEENT: Neck Supple W Full Motion Chest: Symmetric LUNGS: Clear to Auscultation Heart: RRR (SR with LBBB) Abdomen: Soft N/T Extremities: No Edema, No Calf Tenderness Neurology: alert, oriented, follow commands Assessment Assessment 1. Acute renal failure/uremia: Likely ATN with chronic NSAID use with associated left renal mass 2. Left renal mass: nephrology following. No CELESTINA 3. Mild acute on chronic diastolic CHF: compensated. EF and LV WM nml 4. Highly suspect SACHIN: PAP 47 mmHg 5. ?Narcolepsy: she is on ritalin 6. Chronic LBBB 7. Mild troponin elevation: no acute EKG changes. Trop peaked at 0.06, doubt ACS, suspect demand mediated as above 8. COPD with continued tobaccoism: stable. 9. HTN: controlled 10. HLP 11. OA with mobic use 12. Possible ETOH misuse: "2 drinks" vodka a day Recommendations 1. Continue with aggressive IV hydration per nephrology 2. Stop losartan/nHCTZ. Stop Mobic and other NSAIDs. Obtain renal sono. Hold ASA for now. 3. Replace K 4. Will consider for outpt stress test. 5. Continue norvasc. Decrease statin 7. Smoking cessation. ETOH abstinence 8. Will need outpt sleep study Justicifation of Admission Dx: Justifications for Admission: Justification of Admission Dx: Yes Acute Renal Failure: 3-Fold Rise in Serum Crea JAMAL LYONS MD 06/07/20 1608: CARDIO Progress Notes Assessment Assessment Patient seen and examined. Agree with GROUNDSMAN's assessment and plan. Slight troponin elevation probably demand ischemia. 2D echo showed normal LV systolic function without any wall motion abnormalities. Plan for ischemic evaluation as an outpatient. Continue current work-up and treatment of acute renal insufficiency per nephrology team. DEMETRI SANTOS APRN Jun 07, 2020 14:42 JAMAL LYONS MD Jun 07, 2020 16:08
[2020-06-07 15:00] VITALS: BP 145/81
[2020-06-07 19:55] VITALS: BP 141/75
[2020-06-07] MEDS: LOXAPINE SUCCINATE 25 MG CAPSULE PO SCH (20:43)
[2020-06-07] MEDS: traZODone 50 MG TABLET. PO SCH (20:44)
[2020-06-07] MEDS: ATORVASTATIN CALCIUM 40 MG TABLET. PO SCH (20:44)
[2020-06-07 23:04] VITALS: BP 142/76
[2020-06-08] MEDS: IV NORMAL SALINE 1000ML BAG 1,000 ML IV SCH ×3 (01:19→21:17)
[2020-06-08 03:17] VITALS: BP 139/71
[2020-06-08 07:00] VITALS: BP 151/78
[2020-06-08] MEDS ORDERED: POTASSIUM CHLORIDE 20 MEQ TABLET.ER. PO SCH (08:00)
[2020-06-08 08:42] LABS: CALCIUM 8.1 mg/dL (8.5-10.1); GFR 24.7
[2020-06-08 08:47] LABS: POTASSIUM 2.8 mmol/L (3.5-5.1)
[2020-06-08] MEDS: POTASSIUM BICARB 20 MEQ EFFERVESCENT TABLET. PO SCH ×2 (09:00→09:01)
[2020-06-08] MEDS: DICYCLOMINE HCL 10 MG CAPSULE PO SCH (09:01)
[2020-06-08] MEDS: DULoxetine HCL 30 MG CAPSULE.DR PO SCH (09:01)
[2020-06-08] MEDS: METHYLPHENIDATE HCL 5 MG TABLET PO SCH ×3 (09:02→16:30)
[2020-06-08] MEDS: PANTOPRAZOLE 40 MG TABLET.DR. PO SCH (09:02)
[2020-06-08] MEDS: HEPARIN for SUB-Q USE 5,000 UNIT/ML VIAL. SQ SCH ×2 (09:10→21:23)
--- NOTE | 2020-06-08 10:18 | PDOC ---
[employer] PROGRESS NOTE Date of Service DOS: DATE: 06/08/20 TIME: 10:12 Chief Complaint Chief Complaint Assessment/Plan Acute renal failure Hypokalemia Elevated troponin Elevated BNP Plan: Provide continuous IV fluids Consult to nephrology Will obtain urine osmoles, serum osmole, urine potassium Continue to trend troponins; likely elevated in setting of acute renal failure; will consult cardiology if troponins continue to increase Echocardiogram pending Resume home medications FEN - Cardiac diet PPX - Lovenox FULL CODE Dispo - inpatient for above History of Present Illness History of Present Illness Patient is a 70-year-old female past medical history of hypertension, COPD, who presents to the ER at the behest of her primary care provider for concerns of hypokalemia renal failure. She was seen at [facility] ER 1 week ago due to 5- day history of constipation. She was treated with enema with improvement of her constipation, and followed up with her PCP 3 days ago. Some routine lab work was obtained that showed potassium 2.8, BUN 101, creatinine 10. Repeat lab work in the ER showed potassium 2.7, BUN 106, creatinine 6.7. Patient denies any recent history of vomiting, fever, or diarrhea. Will admit patient for further medical management. 06/06: Patient seen and evaluated. She has no complaints. Creatinine 6.7 yesterday, creatinine 4.9 today. Continue IV fluids, avoid nephrotoxins. Will follow cardiology and nephrology recommendations. 06/07: Creatinine continues to improve. Creatinine 4.9 yesterday 3.5 today. Continue with IV fluid. Avoid NSAIDs, continue holding lisinopril. Echocardiogram showed normal LV systolic function without any wall motion abnormalities. Elevation in troponins likely demand ischemia. Cardiology recommended ischemic evaluation as an outpatient. Renal artery duplex yesterday showed no significant renal artery stenosis bilaterally, possible left-sided renal mass measuring 2.[address] abdomen/pelvis with contrast today is pending. 06/08: Patient complains of cough today but attributes this to her being a chronic smoker. Creatinine continues to improve with IV fluids. Creatinine 3.5 yesterday, 2.0 today. Potassium continues to be low despite replacement. Ordered urine potassium on admission but I believe this order was canceled for some reason. Will reorder urine potassium. Continue IV fluids. Will obtain CT abdomen/pelvis to evaluate left renal mass when kidney able to tolerate IV contrast. Vitals/I&O Vitals/I&O: Vital Signs Date Time Temp Pulse Resp B/P (MAP) Pulse Ox O2 Delivery O2 Flow Rate FiO2 06/08/20 07:00 99.2 92 19 151/78 (102) 99 Nasal Cannula 2.0 99.2 I & O 06/07/20 06/07/20 06/08/20 15:00 23:00 07:00 Intake Total 200 ml 950 ml Output Total 525 ml 800 ml 600 ml Balance -525 ml -600 ml 350 ml Physical Exam General: Alert, Oriented X3, Cooperative, No acute distress Heart: Regular rate (SR), Normal S1, Normal S2, Other (3/6 systolic murmur to LLS border) Lungs: Clear Abdomen: Soft, No tenderness Extremities: No cyanosis, No edema Skin: No breakdown, No significant lesion Labs Labs: Laboratory Tests Test 06/07/20 18:50 06/08/20 07:45 Potassium Level 3.2 mmol/L (3.5-5.1) 2.8 mmol/L (3.5-5.1) Sodium Level 147 mmol/L (136-145) Chloride Level 109 mmol/L (98-107) Carbon Dioxide Level 32 mmol/L (21-32) Anion Gap 6 (6-14) Blood Urea Nitrogen 39 mg/dL (7-20) Creatinine 2.0 mg/dL (0.6-1.0) Estimated GFR (Cockcroft-Gault) 24.7 Glucose Level 98 mg/dL (70-99) Calcium Level 8.1 mg/dL (8.5-10.1) Assessment and Plan Assessmemt and Plan Problems Medical Problems: (1) Hypokalemia Status: Acute (2) NSTEMI (non-ST elevated myocardial infarction) Status: Acute (3) Prerenal acute renal failure Status: Acute Comment Review of Relevant I have reviewed the following items kiana (where applicable) has been applied. Medications: Current Medications Medications (Trade) Dose Ordered Sig/Esme Route PRN Reason Start Time Stop Time Status Last Admin Dose Admin Potassium Bicarbonate (Potassium Effervescent Tablet) 40 meq 1X ONCE PO 06/07/20 10:15 06/07/20 10:16 DC 06/07/20 10:58 Methylphenidate HCl (Ritalin) 20 mg TIDAC PO 06/07/20 11:30 06/08/20 09:02 Atorvastatin Calcium (Lipitor) 40 mg QHS PO 06/07/20 21:00 06/07/20 20:44 Potassium Bicarbonate (Potassium Effervescent Tablet) 40 meq DAILY PO 06/08/20 08:00 06/08/20 09:01 Justifications for Admission Other Justification Acute renal failure, hypokalemia TOMER MARISCAL MD Jun 08, 2020 10:18
[2020-06-08] MEDS: POTASSIUM CHLORIDE 10MEQ 100 ML IV SCH ×4 (10:32→14:29)
[2020-06-08 11:00] VITALS: BP 140/76
--- NOTE | 2020-06-08 11:08 | PDOC ---
DATE OF SERVICE DATE: 06/08/20 TIME: 11:04 SUBJECTIVE ROS States feeling better , No complaints OBJECTIVE Vital Signs Vital Signs Date Time Temp Pulse Resp B/P (MAP) Pulse Ox O2 Delivery O2 Flow Rate FiO2 06/08/20 08:00 Nasal Cannula 2.0 06/08/20 07:00 99.2 92 19 151/78 (102) 99 99.2 I & 0 Intake and Output 06/08/20 07:00 Intake Total 1150 ml Output Total 1925 ml Balance -775 ml Intake Oral 200 ml IV Total 950 ml Output Urine Total 1925 ml # Voids 1 PHYSICAL EXAM Physical Exam General: No acute distress HEENT: Atraumatic, Mucous membr. moist/pink Neck supple Lungs: Clear to auscultation, non labored Heart: Regular rate (SR),No rub Abdomen: Soft, No tenderness Extremities: No cyanosis, No edema Skin: No rash No significant lesion Neuro: AXO x3, grossly normal, No Asterexis Psych/Mental Status: Mental status NL, Mood NL No Live, No CVA or SP tenderness MS- Chronic Back pain, Lumbar stenosis, No other joint swellings or Gout etc DIAGNOSIS/ASSESSMENT Assessment & Plan KENYA - ATN/ Chronic use of NSAID's , Non Oliguric , Improving renal function Low grade proteinuria , no Micr hematuria, unlikely GN Renal US No e/o obstructive etiology, No CELESTINA, supportive care, Avoid Nephrotoxins, No NSAID's . Follow up with us post dc in 3-4 weeks (can make fu appt with [facility]) Possible left-sided renal mass measuring 2.8 x 2.5 cm on US, would hold off contrast CT 2/[address] after KENYA resolved and fu with Urology if indicated Hypokalemia- severe Replacing, will need PO KCL prior to dc HyperNatemia - encourage PO free fluid (water intake) Mild acute on chronic diastolic CHF: compensated ?Narcolepsy: she is on ritalin Chronic LBBB COPD -still smokes HTN: controlled,per her home list (reconciled in our system) she is only on Amlodipine COMMENT/RELEVANT DATA Meds Current Medications Medications (Trade) Dose Ordered Sig/Esme Start Time Stop Time Status Last Admin Dose Admin Acetaminophen (Tylenol) 650 mg PRN Q6HRS PRN 06/05/20 18:15 Al Hydroxide/Mg Hydroxide (Mylanta Plus Xs) 30 ml PRN Q3HRS PRN 06/05/20 18:15 Cancel Albuterol Sulfate (Ventolin Neb Soln) 2.5 mg PRN Q4HRS PRN 06/05/20 22:15 Amlodipine Besylate (Norvasc) 10 mg HS 06/05/20 23:00 06/07/20 20:44 10 MG Atorvastatin Calcium (Lipitor) 40 mg QHS 06/07/20 21:00 06/07/20 20:44 40 MG Bisacodyl (Dulcolax Supp) 10 mg PRN DAILY PRN 06/05/20 18:15 Calcium Carbonate/ Glycine (Tums) 500 mg PRN Q3HRS PRN 06/05/20 18:15 Clonazepam (KlonoPIN) 1 mg DAILY 06/06/20 09:00 06/06/20 10:52 DC 06/06/20 08:57 1 MG Dicyclomine HCl (Bentyl) 10 mg DAILY 06/06/20 09:00 06/08/20 09:01 10 MG Duloxetine HCl (Cymbalta) 60 mg DAILY 06/06/20 09:00 06/08/20 09:01 60 MG Heparin Sodium (Porcine) (Heparin Sodium) 5,000 unit Q12HR 06/05/20 21:00 06/08/20 09:10 5,000 UNIT Hydrochlorothiazide (Microzide) 12.5 mg DAILY 06/06/20 09:00 06/06/20 09:54 DC 06/06/20 08:56 12.5 MG Losartan Potassium (Cozaar) 100 mg DAILY 06/06/20 09:00 06/06/20 09:54 DC 06/06/20 08:56 100 MG Loxapine Succinate (Loxitane) 25 mg HS 06/05/20 23:00 06/07/20 20:43 25 MG Magnesium Hydroxide (Milk Of Magnesia) 2,400 mg PRN Q12HR PRN 06/05/20 18:15 Cancel Magnesium Sulfate 50 ml @ 25 mls/hr 1X ONCE 06/05/20 17:00 06/05/20 18:59 DC 06/05/20 17:09 25 MLS/HR Methylphenidate HCl (Ritalin) 20 mg TIDAC 06/07/20 11:30 06/08/20 09:02 20 MG Morphine Sulfate (Morphine Sulfate) 2 mg PRN Q1HR PRN 06/05/20 18:15 Ondansetron HCl (Zofran) 4 mg PRN Q6HRS PRN 06/05/20 18:15 Pantoprazole Sodium (Protonix) 40 mg DAILYAC 06/06/20 07:30 06/08/20 09:02 40 MG Potassium Bicarbonate (Potassium Effervescent Tablet) 40 meq DAILY 06/08/20 08:00 06/08/20 09:01 40 MEQ Potassium Chloride/Sodium Chloride 1,000 ml @ 100 mls/hr Q10H 06/05/20 17:00 06/06/20 02:59 DC 06/05/20 18:13 100 MLS/HR Potassium Chloride/Water 100 ml @ 100 mls/hr Q1H 06/08/20 10:00 06/08/20 13:59 06/08/20 10:32 100 MLS/HR Potassium Chloride (Klor-Con) 20 meq [id number] 06/08/20 08:00 06/07/20 16:21 DC Sodium Chloride 1,000 ml @ 100 mls/hr Q10H 06/06/20 09:30 06/08/20 10:32 100 MLS/HR Trazodone HCl (Desyrel) 50 mg QHS 06/05/20 21:00 06/07/20 20:44 50 MG Zolpidem Tartrate (Ambien) 5 mg PRN QHS PRN 06/05/20 18:15 Lab Laboratory Tests Test 06/07/20 18:50 06/08/20 07:45 Potassium Level 3.2 mmol/L (3.5-5.1) 2.8 mmol/L (3.5-5.1) Sodium Level 147 mmol/L (136-145) Chloride Level 109 mmol/L (98-107) Carbon Dioxide Level 32 mmol/L (21-32) Anion Gap 6 (6-14) Blood Urea Nitrogen 39 mg/dL (7-20) Creatinine 2.0 mg/dL (0.6-1.0) Estimated GFR (Cockcroft-Gault) 24.7 Glucose Level 98 mg/dL (70-99) Calcium Level 8.1 mg/dL (8.5-10.1) Results All relevant outside records, renal labs, imaging studies, telemetry/EKG's were reviewed. Justicifation of Admission Dx: Justifications for Admission: Justification of Admission Dx: Yes Acute Renal Failure: 3-Fold Rise in Serum Crea PHYLLIS BHATT MD Jun 08, 2020 11:08
--- NOTE | 2020-06-08 12:05 | NUR ---
SS following up with discharge planning. SS reviewed pt chart and discussed with pt RN. Pt is currently requiring oxygen at two liters nasal canula. Potassium low. Pt on IV Potassium. No home oxygen. Pt will need six minute walk prior to discharging to home. SS will continue to follow for discharge planning.
[2020-06-08 15:00] VITALS: BP 147/82
[2020-06-08 19:56] VITALS: BP 132/81
--- NOTE | 2020-06-08 20:00 | NUR ---
Pt in bed assessment completed vss poc explained pt denied pain will resume care and continue to monitor pt.
[2020-06-08] MEDS: ATORVASTATIN CALCIUM 40 MG TABLET. PO SCH (21:15)
[2020-06-08] MEDS: traZODone 50 MG TABLET. PO SCH (21:15)
[2020-06-08] MEDS: LOXAPINE SUCCINATE 25 MG CAPSULE PO SCH (21:16)
[2020-06-08 22:46] VITALS: BP 139/82
[2020-06-09 02:31] VITALS: BP 167/92
[2020-06-09 05:32] LABS: CREATININE 1.6 mg/dL (0.6-1.0); POTASSIUM 3.2 mmol/L (3.5-5.1)
[2020-06-09] MEDS: PANTOPRAZOLE 40 MG TABLET.DR. PO SCH (05:34)
[2020-06-09 07:00] VITALS: BP 143/82
--- NOTE | 2020-06-09 07:00 | PDOC ---
[employer] PROGRESS NOTE Date of Service DOS: DATE: 06/09/20 TIME: 06:45 Chief Complaint Chief Complaint Assessment/Plan Acute renal failure Hypokalemia Elevated troponin Elevated BNP Plan: Provide continuous IV fluids Consult to nephrology Will obtain urine osmoles, serum osmole, urine potassium Continue to trend troponins; likely elevated in setting of acute renal failure; will consult cardiology if troponins continue to increase Echocardiogram pending Resume home medications FEN - Cardiac diet PPX - Lovenox FULL CODE Dispo - inpatient for above History of Present Illness History of Present Illness Patient is a 70-year-old female past medical history of hypertension, COPD, who presents to the ER at the behest of her primary care provider for concerns of hypokalemia renal failure. She was seen at [facility] ER 1 week ago due to 5- day history of constipation. She was treated with enema with improvement of her constipation, and followed up with her PCP 3 days ago. Some routine lab work was obtained that showed potassium 2.8, BUN 101, creatinine 10. Repeat lab work in the ER showed potassium 2.7, BUN 106, creatinine 6.7. Patient denies any recent history of vomiting, fever, or diarrhea. Will admit patient for further medical management. 2: Patient seen and evaluated. She has no complaints. Creatinine 6.7 yesterday, creatinine 4.9 today. Continue IV fluids, avoid nephrotoxins. Will follow cardiology and nephrology recommendations. 23: Creatinine continues to improve. Creatinine 4.9 yesterday 3.5 today. Continue with IV fluid. Avoid NSAIDs, continue holding lisinopril. Echocardiogram showed normal LV systolic function without any wall motion abnormalities. Elevation in troponins likely demand ischemia. Cardiology recommended ischemic evaluation as an outpatient. Renal artery duplex yesterday showed no significant renal artery stenosis bilaterally, possible left-sided renal mass measuring 2.[address] abdomen/pelvis with contrast today is pending. 2: Patient complains of cough today but attributes this to her being a chronic smoker. Creatinine continues to improve with IV fluids. Creatinine 3.5 yesterday, 2.0 today. Potassium continues to be low despite replacement. Ordered urine potassium on admission but I believe this order was canceled for some reason. Will reorder urine potassium. Continue IV fluids. Will obtain CT abdomen/pelvis to evaluate left renal mass when kidney able to tolerate IV contrast. 06/09: Patient breathing comfortably on room air, afebrile. Creatinine continues to improve, 2.0 yesterday and 1.6 today. Echocardiogram obtained showing normal LV function and ejection fraction, 55-60%, but moderate pulmonary hypertension. Plan: Continue IV hydration as estimated GFR continues to improve. When able, will obtain CT abdomen/pelvis with IV contrast to evaluate left-sided renal mass 2.8 x 2.5 cm. Hopeful that this can be done by Friday and she can discharge w [facility] outpatient follow-up. Vitals/I&O Vitals/I&O: Vital Signs Date Time Temp Pulse Resp B/P (MAP) Pulse Ox O2 Delivery O2 Flow Rate FiO2 06/09/20 02:31 99.1 78 18 167/92 (117) 92 Room Air 99.1 06/08/20 19:56 2.0 I & O 06/08/20 06/08/20 06/09/20 15:00 23:00 07:00 Intake Total 400 ml 420 ml Output Total 550 ml 600 ml 450 ml Balance -550 ml -200 ml -30 ml Physical Exam General: Alert, Oriented X3, Cooperative, No acute distress Heart: Regular rate (SR), Normal S1, Normal S2, Other (3/6 systolic murmur to LLS border) Lungs: Clear Abdomen: Soft, No tenderness Extremities: No cyanosis, No edema Skin: No breakdown, No significant lesion Labs Labs: Laboratory Tests Test 06/08/20 07:45 06/09/20 05:00 Sodium Level 147 mmol/L (136-145) 147 mmol/L (136-145) Potassium Level 2.8 mmol/L (3.5-5.1) 3.2 mmol/L (3.5-5.1) Chloride Level 109 mmol/L (98-107) 109 mmol/L (98-107) Carbon Dioxide Level 32 mmol/L (21-32) 33 mmol/L (21-32) Anion Gap 6 (6-14) 5 (6-14) Blood Urea Nitrogen 39 mg/dL (7-20) 25 mg/dL (7-20) Creatinine 2.0 mg/dL (0.6-1.0) 1.6 mg/dL (0.6-1.0) Estimated GFR (Cockcroft-Gault) 24.7 32.0 Glucose Level 98 mg/dL (70-99) 103 mg/dL (70-99) Calcium Level 8.1 mg/dL (8.5-10.1) 8.0 mg/dL (8.5-10.1) Assessment and Plan Assessmemt and Plan Problems Medical Problems: (1) Hypokalemia Status: Acute (2) NSTEMI (non-ST elevated myocardial infarction) Status: Acute (3) Prerenal acute renal failure Status: Acute Comment Review of Relevant I have reviewed the following items kiana (where applicable) has been applied. Medications: Current Medications Medications (Trade) Dose Ordered Sig/Esme Route PRN Reason Start Time Stop Time Status Last Admin Dose Admin Potassium Bicarbonate (Potassium Effervescent Tablet) 40 meq DAILY PO 06/08/20 08:00 06/08/20 09:01 Potassium Chloride/Water 100 ml @ 100 mls/hr Q1H IV 06/08/20 10:00 06/08/20 13:59 DC 06/08/20 14:29 Justifications for Admission Other Justification Acute renal failure, hypokalemia TOMER MARISCAL MD Jun 09, 2020 07:00
[2020-06-09] MEDS: POTASSIUM BICARB 20 MEQ EFFERVESCENT TABLET. PO SCH (08:07)
[2020-06-09] MEDS: METHYLPHENIDATE HCL 5 MG TABLET PO SCH ×3 (08:11→16:47)
[2020-06-09] MEDS: DICYCLOMINE HCL 10 MG CAPSULE PO SCH (08:11)
[2020-06-09] MEDS: DULoxetine HCL 30 MG CAPSULE.DR PO SCH (08:12)
[2020-06-09] MEDS: IV NORMAL SALINE 1000ML BAG 1,000 ML IV SCH ×2 (08:15→16:55)
[2020-06-09] MEDS: HEPARIN for SUB-Q USE 5,000 UNIT/ML VIAL. SQ SCH ×2 (08:19→20:56)
--- NOTE | 2020-06-09 09:21 | PDOC ---
DATE OF SERVICE DATE: 06/09/20 TIME: 09:19 SUBJECTIVE ROS States feeling better ,low grade temp, informs me that primary wants to get [facility] and keep her inhouse for 1 more day OBJECTIVE Vital Signs Vital Signs Date Time Temp Pulse Resp B/P (MAP) Pulse Ox O2 Delivery O2 Flow Rate FiO2 06/09/20 07:00 99.1 92 18 143/82 (102) 99 Room Air 99.1 06/08/20 19:56 2.0 I & 0 Intake and Output 06/09/20 07:00 Intake Total 820 ml Output Total 1600 ml Balance -780 ml Intake Oral 820 ml Output Urine Total 1600 ml # Voids 1 PHYSICAL EXAM Physical Exam General: No acute distress HEENT: Atraumatic, Mucous membr. moist/pink Neck supple Lungs: Clear to auscultation, non labored Heart: Regular rate (SR),No rub Abdomen: Soft, No tenderness Extremities: No cyanosis, No edema Skin: No rash No significant lesion Neuro: AXO x3, grossly normal, No Asterexis Psych/Mental Status: Mental status NL, Mood NL No Live, No CVA or SP tenderness MS- Chronic Back pain, Lumbar stenosis, No other joint swellings or Gout etc DIAGNOSIS/ASSESSMENT Assessment & Plan KENYA - ATN/ Chronic use of NSAID's , Non Oliguric , Improving renal function Low grade proteinuria , no Micr hematuria, unlikely GN Renal US No e/o obstructive etiology, No CELESTINA, DC IVF supportive care, Avoid Nephrotoxins, No NSAID's . Follow up with us post dc in 4-6 weeks (can make fu appt with [facility]) and FU labs with PCP in 1 week Possible left-sided renal mass measuring 2.8 x 2.5 cm on US, would hold off contrast CT 2/[address] after KENYA resolved and fu with Urology if indicated Low Grade temp -per primary Hypokalemia- Replacing, DC on PO KCL HyperNatemia - encourage PO free fluid (water intake) COMMENT/RELEVANT DATA Meds Current Medications Medications (Trade) Dose Ordered Sig/Esme Start Time Stop Time Status Last Admin Dose Admin Acetaminophen (Tylenol) 650 mg PRN Q6HRS PRN 06/05/20 18:15 Al Hydroxide/Mg Hydroxide (Mylanta Plus Xs) 30 ml PRN Q3HRS PRN 06/05/20 18:15 Cancel Albuterol Sulfate (Ventolin Neb Soln) 2.5 mg PRN Q4HRS PRN 06/05/20 22:15 Amlodipine Besylate (Norvasc) 10 mg HS 06/05/20 23:00 06/08/20 21:16 10 MG Atorvastatin Calcium (Lipitor) 40 mg QHS 06/07/20 21:00 06/08/20 21:15 40 MG Bisacodyl (Dulcolax Supp) 10 mg PRN DAILY PRN 06/05/20 18:15 Calcium Carbonate/ Glycine (Tums) 500 mg PRN Q3HRS PRN 06/05/20 18:15 Clonazepam (KlonoPIN) 1 mg DAILY 06/06/20 09:00 06/06/20 10:52 DC 06/06/20 08:57 1 MG Dicyclomine HCl (Bentyl) 10 mg DAILY 06/06/20 09:00 06/09/20 08:11 10 MG Duloxetine HCl (Cymbalta) 60 mg DAILY 06/06/20 09:00 06/09/20 08:12 60 MG Heparin Sodium (Porcine) (Heparin Sodium) 5,000 unit Q12HR 06/05/20 21:00 06/09/20 08:19 5,000 UNIT Hydrochlorothiazide (Microzide) 12.5 mg DAILY 06/06/20 09:00 06/06/20 09:54 DC 06/06/20 08:56 12.5 MG Losartan Potassium (Cozaar) 100 mg DAILY 06/06/20 09:00 06/06/20 09:54 DC 06/06/20 08:56 100 MG Loxapine Succinate (Loxitane) 25 mg HS 06/05/20 23:00 06/08/20 21:16 25 MG Magnesium Hydroxide (Milk Of Magnesia) 2,400 mg PRN Q12HR PRN 06/05/20 18:15 Cancel Magnesium Sulfate 50 ml @ 25 mls/hr 1X ONCE 06/05/20 17:00 06/05/20 18:59 DC 06/05/20 17:09 25 MLS/HR Methylphenidate HCl (Ritalin) 20 mg TIDAC 06/07/20 11:30 06/09/20 08:11 20 MG Morphine Sulfate (Morphine Sulfate) 2 mg PRN Q1HR PRN 06/05/20 18:15 Ondansetron HCl (Zofran) 4 mg PRN Q6HRS PRN 06/05/20 18:15 Pantoprazole Sodium (Protonix) 40 mg DAILYAC 06/06/20 07:30 06/09/20 05:34 40 MG Potassium Bicarbonate (Potassium Effervescent Tablet) 40 meq DAILY 06/08/20 08:00 06/09/20 08:07 40 MEQ Potassium Chloride/Sodium Chloride 1,000 ml @ 100 mls/hr Q10H 06/05/20 17:00 06/06/20 02:59 DC 06/05/20 18:13 100 MLS/HR Potassium Chloride/Water 100 ml @ 100 mls/hr Q1H 06/08/20 10:00 06/08/20 13:59 DC 06/08/20 14:29 100 MLS/HR Potassium Chloride (Klor-Con) 20 meq DAILYWBKFT 06/08/20 08:00 06/07/20 16:21 DC Sodium Chloride 1,000 ml @ 100 mls/hr Q10H 06/06/20 09:30 06/09/20 08:15 100 MLS/HR Trazodone HCl (Desyrel) 50 mg QHS 06/05/20 21:00 06/08/20 21:15 50 MG Zolpidem Tartrate (Ambien) 5 mg PRN QHS PRN 06/05/20 18:15 Lab Laboratory Tests Test 06/09/20 05:00 Sodium Level 147 mmol/L (136-145) Potassium Level 3.2 mmol/L (3.5-5.1) Chloride Level 109 mmol/L (98-107) Carbon Dioxide Level 33 mmol/L (21-32) Anion Gap 5 (6-14) Blood Urea Nitrogen 25 mg/dL (7-20) Creatinine 1.6 mg/dL (0.6-1.0) Estimated GFR (Cockcroft-Gault) 32.0 Glucose Level 103 mg/dL (70-99) Calcium Level 8.0 mg/dL (8.5-10.1) Results All relevant outside records, renal labs, imaging studies, telemetry/EKG's were reviewed. Justicifation of Admission Dx: Justifications for Admission: Justification of Admission Dx: Yes Acute Renal Failure: 3-Fold Rise in Serum PHYLLIS Adler MD Jun 09, 2020 09:21
[2020-06-09 11:00] VITALS: BP 144/79
[2020-06-09 15:00] VITALS: BP 128/73
[2020-06-09 19:35] VITALS: BP 158/80
[2020-06-09] MEDS: ATORVASTATIN CALCIUM 40 MG TABLET. PO SCH (20:50)
[2020-06-09] MEDS: traZODone 50 MG TABLET. PO SCH (20:50)
[2020-06-09] MEDS: LOXAPINE SUCCINATE 25 MG CAPSULE PO SCH (20:50)
[2020-06-09 23:00] VITALS: BP 140/79
[2020-06-10 03:30] VITALS: BP 155/86
[2020-06-10] MEDS: IV NORMAL SALINE 1000ML BAG 1,000 ML IV SCH ×2 (03:30→13:22)
[2020-06-10 04:54] LABS: CALCIUM 8.1 mg/dL (8.5-10.1); CREATININE 1.6 mg/dL (0.6-1.0)
[2020-06-10 07:00] VITALS: BP 136/73
[2020-06-10] MEDS: POTASSIUM BICARB 20 MEQ EFFERVESCENT TABLET. PO SCH (08:26)
[2020-06-10] MEDS: DULoxetine HCL 30 MG CAPSULE.DR PO SCH (08:26)
[2020-06-10] MEDS: METHYLPHENIDATE HCL 5 MG TABLET PO SCH ×2 (08:26→11:53)
[2020-06-10] MEDS: PANTOPRAZOLE 40 MG TABLET.DR. PO SCH (08:26)
[2020-06-10] MEDS: DICYCLOMINE HCL 10 MG CAPSULE PO SCH (08:26)
[2020-06-10] MEDS: HEPARIN for SUB-Q USE 5,000 UNIT/ML VIAL. SQ SCH (08:27)
[2020-06-10 11:23] VITALS: BP 127/76
--- NOTE | 2020-06-10 14:31 | DISCH ---
DISCHARGE INSTRUCTIONS Condition on Discharge Condition on Discharge: Stable Activity After Discharge Activity Instructions for Disc: Resume previous activity Contacting the DR. after DC Call your doctor for: If your condition worsens SOL RICHARD MD Jun 10, 2020 14:31
[2020-06-10] MEDS ORDERED: POTA20TA4 PO (14:53)
--- NOTE | 2020-06-10 15:08 | PDOC ---
PROGRESS NOTES Date of Service DATE: 06/10/20 TIME: 15:06 Subjective Subjective IN FOLLOW UP OF ARF/CKD Objective Objective Vital Signs Date Time Temp Pulse Resp B/P (MAP) Pulse Ox O2 Delivery O2 Flow Rate FiO2 06/10/20 11:23 99.3 88 18 127/76 (93) 95 Room Air 99.3 06/09/20 15:00 2.0 Intake and Output 06/10/20 07:00 Intake Total 3130 ml Output Total 1650 ml Balance 1480 ml Intake Oral 1180 ml IV Total 1950 ml Output Urine Total 1650 ml # Voids 1 Physical Exam Abdomen: Normal bowel sounds, Soft, No tenderness, No hepatosplenomegaly, No masses Heart: Regular rate, Normal S1, Normal S2, No murmurs, Gallops Extremities: No clubbing, No cyanosis, No edema, Normal pulses, No tenderness/swelling General: Alert, Oriented X3, Cooperative, No acute distress Lungs: Clear to auscultation, Normal air movement Psych/Mental Status: Mental status NL, Mood NL Diagnosis RENAL FAILURE: Acute (Acute tubular necrosis) Assessment Assessment Problems Medical Problems: (1) Hypokalemia Status: Acute (2) NSTEMI (non-ST elevated myocardial infarction) Status: Acute (3) Prerenal acute renal failure Status: Acute Plan Plan of Care FEELS GOOD AND RENAL FUNCTION IS STABLE FOR D/C. WILL ARRANGE FOR OFFICE FOLLOW UP AND THEN WILL ADDRESS CT FOR RENAL MASS Comment Review of Relevant I have reviewed the following items kiana (where applicable) has been applied. Labs Laboratory Tests Test 06/09/20 05:00 06/10/20 04:00 Sodium Level 147 mmol/L (136-145) 145 mmol/L (136-145) Potassium Level 3.2 mmol/L (3.5-5.1) 3.0 mmol/L (3.5-5.1) Chloride Level 109 mmol/L (98-107) 105 mmol/L (98-107) Carbon Dioxide Level 33 mmol/L (21-32) 30 mmol/L (21-32) Anion Gap 5 (6-14) 10 (6-14) Blood Urea Nitrogen 25 mg/dL (7-20) 21 mg/dL (7-20) Creatinine 1.6 mg/dL (0.6-1.0) 1.6 mg/dL (0.6-1.0) Estimated GFR (Cockcroft-Gault) 32.0 32.0 Glucose Level 103 mg/dL (70-99) 98 mg/dL (70-99) Calcium Level 8.0 mg/dL (8.5-10.1) 8.1 mg/dL (8.5-10.1) Laboratory Tests Test 06/10/20 04:00 Sodium Level 145 mmol/L (136-145) Potassium Level 3.0 mmol/L (3.5-5.1) Chloride Level 105 mmol/L (98-107) Carbon Dioxide Level 30 mmol/L (21-32) Anion Gap 10 (6-14) Blood Urea Nitrogen 21 mg/dL (7-20) Creatinine 1.6 mg/dL (0.6-1.0) Estimated GFR (Cockcroft-Gault) 32.0 Glucose Level 98 mg/dL (70-99) Calcium Level 8.1 mg/dL (8.5-10.1) Medications Current Medications Sodium Chloride 1,000 ml @ 1,000 mls/hr 1X ONCE IV Last administered on 06/05/20at 16:56; Start 06/05/20 at 17:00; Stop 06/05/20 at 17:59; Status DC Potassium Bicarbonate (Potassium Effervescent Tablet) 40 meq 1X ONCE PO Last administered on 06/05/20at 17:00; Start 06/05/20 at 17:00; Stop 06/05/20 at 17:01; Status DC Magnesium Sulfate 50 ml @ 25 mls/hr 1X ONCE IV Last administered on 06/05/20at 17:09; Start 06/05/20 at 17:00; Stop 06/05/20 at 18:59; Status DC Potassium Chloride/Sodium Chloride 1,000 ml @ 100 mls/hr Q10H IV Last administered on 06/05/20at 18:13; Start 06/05/20 at 17:00; Stop 06/06/20 at 02:59; Status DC Sodium Chloride 1,000 ml @ 100 mls/hr CONT PRN IV .; Start 06/05/20 at 18:00 Dicyclomine HCl (Bentyl) 10 mg DAILY PO Last administered on 06/10/20at 08:26; Start 06/06/20 at 09:00 Trazodone HCl (Desyrel) 50 mg QHS PO Last administered on 06/09/20at 20:50; Start 06/05/20 at 21:00 Clonazepam (KlonoPIN) 1 mg DAILY PO Last administered on 06/06/20at 08:57; Start 06/06/20 at 09:00; Stop 06/06/20 at 10:52; Status DC Ondansetron HCl (Zofran) 4 mg PRN Q6HRS PRN IVP NAUSEA/VOMITING; Start 06/05/20 at 18:15 Al Hydroxide/Mg Hydroxide (Mylanta Plus Xs) 30 ml PRN Q3HRS PRN PO HEARTBURN / GAS; Start 06/05/20 at 18:15; Status Cancel Calcium Carbonate/ Glycine (Tums) 500 mg PRN Q3HRS PRN PO UPSET STOMACH; Start 06/05/20 at 18:15 Zolpidem Tartrate (Ambien) 5 mg PRN QHS PRN PO INSOMNIA, MAY REPEAT IN 1HR Last administered on 06/09/20at 20:49; Start 06/05/20 at 18:15 Morphine Sulfate (Morphine Sulfate) 2 mg PRN Q1HR PRN IV PAIN; Start 06/05/20 at 18:15 Acetaminophen (Tylenol) 650 mg PRN Q6HRS PRN PO Headaches, Temp > 101.5F; Start 06/05/20 at 18:15 Magnesium Hydroxide (Milk Of Magnesia) 2,400 mg PRN Q12HR PRN PO CONSTIPATION; Start 06/05/20 at 18:15; Status Cancel Bisacodyl (Dulcolax Supp) 10 mg PRN DAILY PRN [place] CONSTIPATION; Start 06/05/20 at 18:15 Heparin Sodium (Porcine) (Heparin Sodium) 5,000 unit Q12HR SQ Last administered on 06/10/20at 08:27; Start 06/05/20 at 21:00 Amlodipine Besylate (Norvasc) 10 mg HS PO Last administered on 06/09/20at 20:50; Start 06/05/20 at 23:00 Duloxetine HCl (Cymbalta) 60 mg DAILY PO Last administered on 06/10/20at 08:26; Start 06/06/20 at 09:00 Hydrochlorothiazide (Microzide) 12.5 mg DAILY PO Last administered on 06/06/20at 08:56; Start 06/06/20 at 09:00; Stop 06/06/20 at 09:54; Status DC Losartan Potassium (Cozaar) 100 mg DAILY PO Last administered on 06/06/20at 08:5 6; Start 06/06/20 at 09:00; Stop 06/06/20 at 09:54; Status DC Pantoprazole Sodium (Protonix) 40 mg DAILYAC PO Last administered on 06/10/20 08:26; Start 06/06/20 at 07:30 Atorvastatin Calcium (Lipitor) 80 mg QHS PO Last administered on 06/06/20at 22:12; Start 06/05/20 at 23:00; Stop 06/07/20 at 14:41; Status DC Loxapine Succinate (Loxitane) 25 mg HS PO Last administered on 06/09/20at 20:50; Start 06/05/20 at 23:00 Albuterol Sulfate (Ventolin Neb Soln) 2.5 mg PRN Q4HRS PRN INH wheezing; Start 06/05/20 at 22:15 Potassium Chloride (Klor-Con) 40 meq 1X ONCE PO Last administered on 06/06/20at 09:37; Start 06/06/20 at 09:30; Stop 06/06/20 at 09:31; Status DC Sodium Chloride 1,000 ml @ 100 mls/hr Q10H IV Last administered on 06/09/20at 16:55; Start 06/06/20 at 09:30 Potassium Chloride (Klor-Con) 20 meq DAILYWBKFT PO ; Start 06/08/20 at 08:00; Stop 06/07/20 at 16:21; Status DC Potassium Bicarbonate (Potassium Effervescent Tablet) 40 meq 1X ONCE PO Last administered on 06/07/20at 10:58; Start 06/07/20 at 10:15; Stop 06/07/20 at 10:16; Status DC Methylphenidate HCl (Ritalin) 20 mg TIDAC PO Last administered on 06/10/20 11:53; Start 06/07/20 at 11:30 Atorvastatin Calcium (Lipitor) 40 mg QHS PO Last administered on 06/09/20at 20:50; Start 06/07/20 at 21:00 Potassium Bicarbonate (Potassium Effervescent Tablet) 40 meq DAILY PO Last administered on 2/6/21at 08:26; Start 06/08/20 at 08:00 Potassium Chloride/Water 100 ml @ 100 mls/hr Q1H IV Last administered on 06/08/20at 14:29; Start 06/08/20 at 10:00; Stop 06/08/20 at 13:59; Status DC Active Scripts Active Potassium Chloride (Potassium Chloride) 20 Meq Tablet.er 20 Meq PO DAILY 30 Days Reported Ritalin (Methylphenidate Hcl) 20 Mg Tablet 1 Tab PO TID Crestor (Rosuvastatin Calcium) 40 Mg Tablet 1 Tab PO DAILY Proair Hfa Inhaler (Albuterol Sulfate) 8.5 Gm Hfa.aer.ad 2 Puff IH PRN Q4-6HRS PRN 21 Days Green Tea (Green Tea [place] Extract) 1 Each Capsule 1 Each PO DAILY [Vitamin B12] DAILY [Vitamin C] DAILY [Vitamin D] DAILY Centrum Silver Tablet (Multivits-Min/Fa/Lycopene/Lut) 1 Each Tablet 1 Each PO DAILY Clonazepam 1 Mg Tablet 1 Mg PO TID PRN Trazodone Hcl 50 Mg Tablet 1 Tab PO QHS Loxapine (Loxapine Succinate) 25 Mg Capsule 25 Mg PO HS Cymbalta (Duloxetine Hcl) 60 Mg Capsule. 60 Mg PO DAILY Dicyclomine Hcl 10 Mg Capsule 1 Cap PO HS Amlodipine Besylate 10 Mg Tablet 10 Mg PO HS Omeprazole 40 Mg Capsule. 1 Cap PO DAILY Vitals/I & O Vital Sign - Last 24 Hours 06/09/20 06/09/20 06/09/20 06/09/20 19:35 19:37 20:50 23:00 Temp 99.8 98.3 99.8 98.3 Pulse 87 87 87 Resp 18 18 B/P (MAP) 158/80 (106) 158/80 140/79 (99) Pulse Ox 95 94 O2 Delivery Room Air Nasal Cannula Room Air 06/10/20 06/10/20 06/10/20 06/10/20 03:30 07:00 07:40 11:23 Temp 99.5 99.7 99.3 99.5 99.7 99.3 Pulse 78 88 88 Resp 20 18 18 B/P (MAP) 155/86 (109) 136/73 (94) 127/76 (93) Pulse Ox 95 92 95 O2 Delivery Room Air Room Air Room Air Room Air Intake and Output 06/09/20 06/09/20 06/10/20 15:00 23:00 07:00 Intake Total 1480 ml 1450 ml 200 ml Output Total 1200 ml 400 ml 50 ml Balance 280 ml 1050 ml 150 ml Justifications for Admission Other Justification Acute renal failure, hypokalemia LORETTA RODRIGUEZ MD Jun 10, 2020 15:08
--- NOTE | 2020-06-10 15:25 | PDOC ---
GENERAL General: Discharge summary [id number] VITAL SIGNS Vital Signs/I&O: Vital Signs Date Time Temp Pulse Resp B/P (MAP) Pulse Ox O2 Delivery O2 Flow Rate FiO2 06/10/20 11:23 99.3 88 18 127/76 (93) 95 Room Air 99.3 06/09/20 15:00 2.0 I & O 06/09/20 06/09/20 06/10/20 15:00 23:00 07:00 Intake Total 1480 ml 1450 ml 200 ml Output Total 1200 ml 400 ml 50 ml Balance 280 ml 1050 ml 150 ml ALLERGIES Allergies: Allergies Coded Allergies Type Severity Reaction Last Updated Verified nifedipine Allergy Intermediate 06/05/20 Yes YARELIS Inhibitors Adverse Reaction Intermediate cough 06/05/20 Yes LAB Lab: Laboratory Tests Test 06/10/20 04:00 Sodium Level 145 mmol/L (136-145) Potassium Level 3.0 mmol/L (3.5-5.1) L Chloride Level 105 mmol/L (98-107) Carbon Dioxide Level 30 mmol/L (21-32) Anion Gap 10 (6-14) Blood Urea Nitrogen 21 mg/dL (7-20) H Creatinine 1.6 mg/dL (0.6-1.0) H Estimated GFR (Cockcroft-Gault) 32.0 Glucose Level 98 mg/dL (70-99) Calcium Level 8.1 mg/dL (8.5-10.1) L Laboratory Tests 06/10/20 04:00 Justifications for Admission Other Justification Acute renal failure, hypokalemia SOL RICHARD MD Jun 10, 2020 15:25
--- NOTE | 2020-06-10 15:48 | DS ---
DATE OF DISCHARGE: HOSPITAL COURSE: This patient is a 70-year-old woman who is a continuity outpatient of Dr[facility] Gay[facility] Bab[facility] I am rounding for them this weekend. The patient was admitted 6 days ago for renal failure that was progressively worsening as an outpatient. She had a creatinine of 10 and a BUN of 101 on admission. The patient responded nicely to conservative treatment with intravenous fluids and potassium supplementation. Her creatinine today is 1.6. The plan is to continue to follow closely as an outpatient and supplement her potassium. The patient was seen daily by Nephrology while here. In fact, I spoke with Dr. Villeda today about her case. She is felt to have NSAID-induced acute tubular necrosis that has responded nicely to fluids and withholding of nephrotoxic medications. The patient does tell me that she takes meloxicam daily for her arthritis. She understands that she is to hold any Motrin or Motrin like medication from this point onward. Her workup did reveal a 2.8 x 2.5 cm complex cyst versus mass in her left kidney. She will need a contrast CT abdomen and pelvis to further assess. Nephrology wished to hold off on that given the severity of her renal failure on presentation. The patient understands that she will need to follow up with that too. She is very eager for discharge today. PHYSICAL EXAMINATION: VITAL SIGNS: This afternoon is notable for that the patient has had a T-max of 99.5 today. In fact, she has had a temperature hovering around 99 the entire time she is here (negative infection work up). Blood pressure is in the 140s- 150s/80s, heart rate is in the 80s and regular. She is breathing comfortably and saturating normally on room air. GENERAL: She is a pleasant 70-year-old woman, alert and oriented x 3, in no acute distress. HEENT: Unremarkable. CHEST: Clear to auscultation. HEART: S1, S2 normal. Regular rate and rhythm. No murmurs or gallops are noted. ABDOMEN: Soft, nontender, nondistended. No masses or organomegaly noted. EXTREMITIES: Unremarkable for acute abnormality. FINAL DIAGNOSES: 1. Acute kidney injury secondary to acute tubular necrosis, thought to be due to NSAID nephropathy. 2. Left renal mass noted on renal ultrasound here in the hospital, needs further assessment as outlined above. 3. Hypokalemia. She is sent on 20 mEq of potassium and needs a followup chemistry this week. 4. Chronic multimorbidity, otherwise as outlined in the history and physical. SOL RICHARD MD DR: YARELIS/radha JOB#: [id number] / [id number] GAYLA Sesay MD, LORETTA WEINSTEIN
--- NOTE | 2020-06-10 16:19 | NUR ---
Pt alert and oriented throughout shift. Pt denied pain and states she feels much better than when she came in. Pt educated on taking potassium daily and all her follow ups. Pt denied questions at time of discharge. Pt tolerated IV removal. Catheter tip intact. Pressure applied. bleeding stopped. All belongings with pat at time of discharge. Pt wheeled out to family car by this RN.
== END 2020-06-10 15:00 | disposition home or self-care (01) | DRG 682 ==
LOC: ER 13:35 → 2 SOUTH 17:17
PROVIDERS: ADMIT Family Medicine; ATTEND Family Medicine
DX: N17.0 Acute kidney failure with tubular necrosis (principal); I21.4 Non-ST elevation (NSTEMI) myocardial infarction; I50.33 Acute on chronic diastolic (congestive) heart failure; I13.0 Hypertensive heart and chronic kidney disease with heart failure and stage 1 through stage 4 chronic kidney disease, or unspecified chronic kidney disease; E87.0 Hyperosmolality and hypernatremia; E78.5 Hyperlipidemia, unspecified; F17.210 Nicotine dependence, cigarettes, uncomplicated; I27.20 Pulmonary hypertension, unspecified; I44.7 Left bundle-branch block, unspecified; J44.9 Chronic obstructive pulmonary disease, unspecified; M19.90 Unspecified osteoarthritis, unspecified site; N18.9 Chronic kidney disease, unspecified; N28.89 Other specified disorders of kidney and ureter; F32.9 Major depressive disorder, single episode, unspecified; F41.9 Anxiety disorder, unspecified; G56.00 Carpal tunnel syndrome, unspecified upper limb; G89.29 Other chronic pain; K21.9 Gastro-esophageal reflux disease without esophagitis; E87.6 Hypokalemia; T39.395A Adverse effect of other nonsteroidal anti-inflammatory drugs [NSAID], initial encounter; Y92.89 Other specified places as the place of occurrence of the external cause; Z79.1 Long term (current) use of non-steroidal anti-inflammatories (NSAID); Z90.49 Acquired absence of other specified parts of digestive tract; Z90.710 Acquired absence of both cervix and uterus; Z88.8 Allergy status to other drugs, medicaments and biological substances
CPT/HCPCS: 36415; 36600; 71045; 76770; 80048; 80061; 80076; 80307; 81001; 82550; 82570; 82805; 83735; 83880; 83930; 83935; 84132; 84156; 84443; 84484; 84550; 85025; 85610; 85730; 86140; 93005; 93306; 94760; 96365; J1644; J3475; J3480; J7030; 99285-25; G0378

== ENCOUNTER → 2020-07-04 | Outpatient (CLI) | payer MEDICARE ==
[2020-06-10 11:23] VITALS: BP 127/76
[~2020-07-04] MED LIST changes: +ALBU2.5V8 IH; +CRESTOR40 MG PO; +HYDR12.58 PO; +LOSA100T14 PO; +OMEP40CA45 PO; -OMEP40CA7 PO; +POTA20TA4 PO; +REGADENOSON 0.4 MG/5 ML DISP.SYRIN. IV ONE
--- NOTE | 2020-07-04 13:58 | RAD ---
MR#: [id number] Date of Study: 07/04/2020 Ordering Physician: JAMAL LYONS, Referring Physician: RAMSES GAONA Tech: MATTIE Sanchez ARRT (R) (N) APPROVED REPORT Test Type: Pharmacological Stress Nurse/Tech: Martha Babcock R.N. Test Indications: chest pain Cardiac History: high cholesterol,htn, COPD, smokes, ARF Medications: See Electronic Medical Record Medical History: See Electronic Medical Record Resting ECG: SR w/ LBBB Resting Heart Rate: SB bpm Resting Blood Pressure: 132/73mmHg Pretest Chest Pain: No chest pain Nurse/Tech Notes S1S2, lungs- coarse wheezing on rt side, slight wheezing on lt side Consent: The procedure was explained to the patient in lay terms. Informed consent was witnessed. Sam eout was entered into [employer]. History and Stress Test performed by MATTIE Sanchez ARRT (R) (N) Pharm. Details Pharmacologic stress testing was performed using 0.4mg per 5ml of regadenoson given intravenously ove r 7-10 seconds. Stress Symptoms SOA w/ coughing POST EXERCISE Reason for Termination: Infusion complete Max HR: 97 bpm Max Blood Pressure: 140/68mmHg Blood Pressure response to exercise: Normal blood pressure response during stress. Heart Rate response to exercise: wnl Chest Pain: No. Arrhythmia: No. ST Change: Yes. non-diagnostic INTERPRETATION Stress EKG Conclusion: Baseline EKG showed sinus rhythm with LBBB. No ischemic changes at peak stres s. No arrhythmias. Imaging Protocol IMAGE PROTOCOL: Rest Tc-99m/stress Tc-99m 1 day Rest: Stress: Viability: Radiopharm.Tc99m [id number] Sestamibi Dose10.2mCi 33mCi Img Date 07/04/2020 07/04/2020 Inj-Img [id number]. 60min. Rest Admin Site:IV - Right AntecubitalAdministrator:MATTIE Sanchez ARRT (R)(N) Stress Admin Site: IV - Right AntecubitalAdministrator: AMPARO Mustafa STRESS DATA End Diast. Vol.61.0mlLVEDV index BSA38.0ml End Syst. Vol.15.0mlLVESV index BSA10.0ml Myocardial Nlnh048.0gEject. Fjrdwryd57.0% Stress Scores Regional WT2.00Summed WT23.00 Regional WM0.00Summed WM5.00 Study quality was good. Left Ventricular size was Normal at Rest and Stress. Lung uptake was . Left Ventricular ejection fraction is 70%. The rest and stress images show normal perfusion, normal contraction and thickening. LV Perf. Quant 17 Seg. SSS4.00 17 Seg. SRS4.00 17 Seg. SDS0.00 Stress Defect Extent (% LAD)20.60Rest Defect Extent (% LAD)21.30Rev. Defect Extent (% LAD)0.00 Stress Defect Extent (% LCX) 0.00Rest Defect Extent (% LCX)0.00Rev. Defect Extent (% LCX)0.00 Stress Defect Extent (% RCA)0.00Rest Defect Extent (% RCA)2.20Rev. Defect Extent (% RCA)0.00 Stress Defect Extent (% DORI)9.60Rest Defect Extent (% DORI)10.90Rev. Defect Extent (% DORI)0.00 Conclusion 1. Regadenoson cardioisotope stress test did not show any evidence of ischemia or infarct. 2. Normal left ventricular systolic function with ejection fraction calculated at 70%. 3. Low risk for cardiac events. Signed by : Jamal Lyons, Electronically Approved : 07/04/2020 13:57:42
== END ==
LOC: NM 09:12
PROVIDERS: ATTEND Internal Medicine Cardiovascular Disease
DX: R07.9 Chest pain, unspecified (principal); I44.7 Left bundle-branch block, unspecified; I10 Essential (primary) hypertension; N17.9 Acute kidney failure, unspecified; E78.00 Pure hypercholesterolemia, unspecified; F17.200 Nicotine dependence, unspecified, uncomplicated
CPT/HCPCS: 78452; 93017; A9500; J2785

== ENCOUNTER → 2020-07-10 | Outpatient (CLI) | payer MEDICARE ==
[2020-06-10 11:23] VITALS: BP 127/76
[~2020-07-10] MED LIST changes: +IOHEXOL 300 MG/ML 100ML VIAL. IV ONE; -REGADENOSON 0.4 MG/5 ML DISP.SYRIN. IV ONE
--- NOTE | 2020-07-10 10:21 | RAD ---
EXAM: Abdomen and pelvis CT with and without intravenous contrast. HISTORY: Renal cyst. TECHNIQUE: Computed tomographic images of the abdomen and pelvis were obtained prior to and following the administration of intravenous contrast. Multiplanar reformatting was performed. *One or more of the following individualized dose reduction techniques were utilized for this examina tion: 1. Automated exposure control. 2. Adjustment of the mA and/or kV according to patient size. 3. Use of iterative reconstruction technique. COMPARISON: Sonogram dated 06/05/2020. FINDINGS: Evaluation of the lower thorax demonstrates a 3 mm groundglass opacities within the posteri or right lower lobe. This benign in appearance. No suspicious nodule is seen. There is basilar atelec tasis. The heart is normal in size. There is fatty infiltration of the liver along the falciform liga ment. There is no suspicious hepatic lesion. The gallbladder contains multiple stones. There is gallb ladder wall thickening. There are calcifications along the pancreas which are vascular in etiology. N o pancreatic lesion is seen. The spleen is normal in size. The adrenal glands are unremarkable. The s tomach is unremarkable. There is no evidence of nephrolithiasis or hydronephrosis. There are small simple appearing cyst with in the right kidney, measuring 1.1 cm within the medial upper pole, 2 mm within the lateral upper mid zone and 1.1 cm within the lateral lower pole. There is also a simple appearing cyst within the late ral upper mid zone of the left kidney measuring 1.1 cm. There is a 7 mm simple cyst within the medial lower mid zone of the left kidney. There is a 4 mm simple cyst within the upper pole the left kidney . There is a complicated lobulated cyst with partial wall calcification or adjacent cysts with partia l wall calcification within the anterior mid zone of the left kidney measuring 3.2 cm in maximum dime nsion. No convincing solid lesion component is seen. The appendix is absent. There is no evidence of bowel obstruction. There is no abnormal bowel wall th ickening. The urinary bladder is unremarkable. The uterus and ovaries are absent. There is calcified atherosclerotic plaque involving the aorta and main aortic branch vessels. There is no aneurysm. No p athologically enlarged lymph node is seen. There is a 3.5 cm region of benign-appearing fatty strandi ng within the right buttock. There are degenerative changes throughout the thoracolumbar spine. There is scoliosis and multilevel listhesis. There is no acute or suspicious osseous finding. There is sig nificant stenosis of the lower lumbar levels. IMPRESSION: 1. 3.2 cm complicated lobulated cyst or multiple adjacent cysts with partial wall calcification withi n the anterior mid zone of the left kidney (Bosniak 2F). Follow-up with a renal sonogram or a renal p rotocol CT or MRI in 6 months can be performed to confirm stability. 2. Multiple small simple cysts within both kidneys. 3. Cholelithiasis with superimposed gallbladder wall thickening. Gallbladder sonography can be perfor med for better characterization if there is concern for cholecystitis. Electronically signed by: Mireille Hyman MD (07/10/2020 10:19 AM) [id number]
== END ==
LOC: CT 08:19
PROVIDERS: ATTEND Nurse Practitioner Adult Health
DX: N28.1 Cyst of kidney, acquired (principal); K80.20 Calculus of gallbladder without cholecystitis without obstruction; Q42.8 Congenital absence, atresia and stenosis of other parts of large intestine; M47.815 Spondylosis without myelopathy or radiculopathy, thoracolumbar region
CPT/HCPCS: 74178; Q9967

== ENCOUNTER → 2020-09-21 | Outpatient (CLI) | payer MEDICARE ==
[~2020-09-21] MED LIST changes: -IOHEXOL 300 MG/ML 100ML VIAL. IV ONE
--- NOTE | 2020-09-21 10:18 | RAD ---
EXAM: Lower extremity arterial Doppler sonogram with ankle-brachial indices (VANESSA). HISTORY: Pain. Peripheral vascular disease. TECHNIQUE: Doppler sonographic evaluation of the lower extremities was performed and pressure reading s were assessed. FINDINGS: Right brachial pressure: 126 mmHg Left brachial pressure: 123 mmHg Right ankle pressure: 125 mmHg Right VANESSA: 0.99 Left ankle pressure: 127 mmHg Left VANESSA: 1.0 There are normal triphasic and biphasic waveforms and normal peak systolic velocities throughout the lower extremity arteries. There is an incidental left popliteal cyst measuring 5.4 x 2.9 x 1.4 cm. IMPRESSION: 1. No Doppler evidence of bilateral lower extremity arterial stenosis or occlusion. 2. Normal bilateral ankle-brachial indices. 3. Left Thakkar's cyst measuring 5.4 cm. Electronically signed by: Mireille Hyman MD (09/21/2020 10:16 AM) [id number]
== END ==
LOC: US 09:44
PROVIDERS: ATTEND Family Medicine
DX: M71.22 Synovial cyst of popliteal space [Baker], left knee (principal); M71.21 Synovial cyst of popliteal space [Baker], right knee; F17.200 Nicotine dependence, unspecified, uncomplicated
CPT/HCPCS: 93922; 93925

== ENCOUNTER → 2021-06-18 | Outpatient (CLI) | payer MEDICARE ==
[~2021-06-18] MED LIST changes: -DULO60CA6 PO; +DULO60CA7 PO; -OMEP40CA45 PO; +OMEP40CA7 PO
--- NOTE | 2021-06-18 17:22 | RAD ---
Bilateral digital screening 2-D and 3-D (digital breast tomosynthesis) mammogram: Reason for examination: Routine screening. Comparison: Mammograms from 04/10/2020, 04/09/2018, 03/13/2017. Interpretation was made with the benefit of CAD. FINDINGS: Breast density: Category B. There are scattered areas of fibroglandular density. No new suspicious breast mass, malignant appearing calcifications, or architectural distortion is see n. IMPRESSION: No evidence of malignancy. Assessment: BI-RADS 1. Negative. Recommendation: Routine screening mammograms. The patient will receive a letter with the results in the mail. Patient information will be entered i nto the mammography reminder system with a target recall date for the next mammogram. A reminder kari er will be generated. Electronically signed by: Sylvia Moyer MD (06/18/2021 5:20 PM) [id number]
== END ==
LOC: MAMMO 12:47
PROVIDERS: ATTEND Family Medicine
DX: Z12.31 Encounter for screening mammogram for malignant neoplasm of breast (principal)
CPT/HCPCS: 77063; 77067

== ENCOUNTER → 2021-06-27 | Outpatient (CLI) | payer MEDICARE ==
--- NOTE | 2021-06-27 16:31 | KCIC ---
Examination: MRI of the right knee without contrast HISTORY: History of right knee pain, arthritis COMPARISON: None TECHNIQUE: Multiplanar, multisequence MR imaging of the right knee was performed without contrast FINDINGS: There is increased T2 signal identified in the region of the anterior cruciate ligament with some of the fibers appearing intact. However complete evaluation of the anterior cruciate ligament is limited . Partial tear is not completely excluded. The posterior cruciate ligament is intact. There is complete attenuation of the medial meniscus with complete cartilage loss in the medial alan rtment. There is mild medial extrusion of the medial meniscus medially. Multiple subchondral cystic c hanges identified in the medial femoral condyle and medial tibial plateau. The lateral meniscus appears intact. The medial collateral ligament is intact. The lateral collateral ligamentous complex the fibular sofia ateral ligament, biceps femoris tendon, popliteus tendon appear intact. The extensor mechanism appears intact. There is deep fissuring of cartilage identified in the lateral compartment femoral compartments. The medial, lateral retinaculum appears intact. Small knee joint effusion. Severe joint space loss medial compartment. There is moderate joint space loss lateral, patellofemora l compartments. IMPRESSION: 1. 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 2. Complete attenuation of the medial meniscus with mild medial extrusion of the medial meniscus med ially. 3. There is increased T2 signal identified in the region of the anterior cruciate ligament with some of the fibers appearing intact. However complete evaluation of the anterior cruciate ligament is jacobsen ited. Partial tear is not completely excluded. 4. Small knee joint effusion. Electronically signed by: Josh Castellanos MD (06/27/2021 4:29 PM) [id number]
== END ==
LOC: KCIC MRI 14:27
PROVIDERS: ATTEND Student in an Organized Health Care Education/Training Program
DX: M17.11 Unilateral primary osteoarthritis, right knee (principal); M25.761 Osteophyte, right knee; M25.861 Other specified joint disorders, right knee
CPT/HCPCS: 73721

== ENCOUNTER → 2021-08-22 | Outpatient (CLI) | payer MEDICARE ==
--- NOTE | 2021-08-22 13:48 | RAD ---
EXAMINATION: US ABDOMEN COMPLETE 08/22/2021 9:42 AM INDICATION: Epigastric pain and tenderness. Cholecystectomy in 2020. TECHNIQUE: Maldonado scale and color Doppler ultrasound images of the abdomen were obtained. COMPARISON: CT abdomen pelvis 07/10/2020. FINDINGS: Liver: The liver is normal in size measuring 16 cm in length. Normal hepatic echogenicity. No focal liver lesion. Gallbladder: The gallbladder is surgically absent. No abnormality in the gallbladder fossa. Bile ducts: The common bile duct is normal measuring 4 mm. No intrahepatic biliary duct dilatation. Kidneys: The right kidney measures 9.5 x 4.0 x 3.6 cm. The left kidney measures 11.0 x 3.6 x 4.6 cm. Mild cortical thinning bilaterally. Normal renal echogenicity. There is a 1.9 cm anechoic left renal cyst with a possible septation or peripheral calcification and the left kidney. No hydronephrosis. Spleen: Spleen is normal measuring 10.8 cm. Other: Abdominal aorta is normal in the proximal midportion and obscured distally by bowel gas. Pancr eas is normal where visualized. The IVC is patent at the level the liver. IMPRESSION: 1. Post cholecystectomy. 2. 2 cm mildly complicated left renal cyst. Electronically signed by: Dhara Torres MD (08/22/2021 1:45 PM) [id number]
== END ==
LOC: US 09:42
PROVIDERS: ATTEND Internal Medicine Gastroenterology
DX: N28.1 Cyst of kidney, acquired (principal); N28.89 Other specified disorders of kidney and ureter; R10.13 Epigastric pain; Z90.49 Acquired absence of other specified parts of digestive tract
CPT/HCPCS: 76700